=== PATIENT | female | born 1955 | race Caucasian/White ===

== ENCOUNTER 2020-08-01 10:09 | Outpatient (REF) | payer MEDICAID, SELFPAY | END 2020-08-01 10:10 | disposition home or self-care (01) | LOC: HO.LAB 10:09 | PROVIDERS: Visit Provider Internal Medicine | DX: Z20.828 Contact with and (suspected) exposure to other viral communicable diseases (principal) | CPT/HCPCS: U0003 ==

== ENCOUNTER 2021-07-02 07:59 | Outpatient (REF) | payer MEDICARE, MEDICAID, SELFPAY ==
--- NOTE | ~2021-07-02 | MM_ITS ---
EXAMINATION: MM SCREENING DIGITAL BREAST TOMOSYNTHESIS, BILATERAL CLINICAL INFORMATION: Screening. Asymptomatic. The lifetime risk of breast cancer based on the Tyrer-Cuzick Model is 3%. COMPARISON: Mammography: 07/05/2019, 11/19/2013 TECHNIQUE: Digital breast tomosynthesis is performed in both the craniocaudal and mediolateral oblique views along with computer-aided detection (CAD). Synthesized 2D images are generated from the tomosynthesis. FINDINGS: There are scattered areas of fibroglandular density (ACR BI-RADS breast composition Category b). There are no significant masses, abnormal calcifications, or other abnormalities. No significant changes from prior studies. The axilla and skin contours are unremarkable. MM/MM tomosynthesis screening BI IMPRESSION: No mammographic evidence of malignancy. ASSESSMENT: BI-RADS 1: Negative RECOMMENDATION: Routine annual mammography screening. This patient's information was entered into a reminder system with a target due date for their next mammogram.
== END 2021-07-02 08:00 | disposition home or self-care (01) ==
LOC: HO.MAMMO 07:59
PROVIDERS: PCP Internal Medicine; Visit Provider Internal Medicine
DX: Z12.31 Encounter for screening mammogram for malignant neoplasm of breast (principal)
CPT/HCPCS: 77063; 77067

== ENCOUNTER 2021-07-15 05:14 | Outpatient (REF) | payer MEDICARE, MEDICAID, SELFPAY ==
--- NOTE | ~2021-07-15 | XR_ITS ---
EXAMINATION: TIBIA FIBULA, RIGHT ANKLE. CLINICAL INFORMATION: Injury COMPARISON: None TECHNIQUE: Frontal lateral tibia-fibula, frontal lateral oblique right ankle. FINDINGS: There is nondisplaced vertical fracture through the posterior malleolus distal tibia extend into the articular surface. There is nondisplaced oblique proximal fibular diaphyseal fracture. Proximal tibia is intact. Bone alignments remain satisfactory. Ankle mortise and talar dome are intact. XR/XR tibia fibula RT 2V IMPRESSION: 1. Posterior malleolar distal tibia intra-articular nondisplaced fracture. 2. Nondisplaced proximal fibular diaphyseal fracture.
--- NOTE | ~2021-07-15 | XR_ITS ---
EXAMINATION: TIBIA FIBULA, RIGHT ANKLE. CLINICAL INFORMATION: Injury COMPARISON: None TECHNIQUE: Frontal lateral tibia-fibula, frontal lateral oblique right ankle. FINDINGS: There is nondisplaced vertical fracture through the posterior malleolus distal tibia extend into the articular surface. There is nondisplaced oblique proximal fibular diaphyseal fracture. Proximal tibia is intact. Bone alignments remain satisfactory. Ankle mortise and talar dome are intact. XR/XR ankle RT min 3V IMPRESSION: 1. Posterior malleolar distal tibia intra-articular nondisplaced fracture. 2. Nondisplaced proximal fibular diaphyseal fracture.
--- NOTE | ~2021-07-15 | XR_ITS ---
EXAMINATION: XR ANKLE, RIGHT CLINICAL INFORMATION: Pain COMPARISON: None TECHNIQUE: AP, lateral, and mortise views of the right ankle. FINDINGS: There is vertical fracture through the distal tibia, posterior malleolus extend into an articular surface. There is fiberglass cast in place. There are posterior and inferior calcaneal spurs. XR/XR ankle RT min 3V IMPRESSION: Nondisplaced intra-articular posterior malleolar fracture. Cast in place.
== END 2021-07-15 05:15 | disposition home or self-care (01) ==
LOC: HO.HOSX 05:14
PROVIDERS: Visit Provider Physician Assistant
DX: S82.851A Displaced trimalleolar fracture of right lower leg, initial encounter for closed fracture (principal)
CPT/HCPCS: 73590; 73610; 99202

== ENCOUNTER → 2021-07-19 14:27 | Outpatient (BNVA) | payer MEDICARE, MEDICAID, SELFPAY | PROVIDERS: Visit Provider Physician Assistant | DX: S82.839D Other fracture of upper and lower end of unspecified fibula, subsequent encounter for closed fracture with routine healing (principal); S82.891D Other fracture of right lower leg, subsequent encounter for closed fracture with routine healing | CPT/HCPCS: 99212 ==

== ENCOUNTER 2021-07-20 09:14 | Day surgery (SDC) | payer MEDICARE, MEDICAID, SELFPAY ==
[2021-07-20] VITALS (10 sets, daily range): BP systolic 86–116; BP diastolic 55–66; PULSE 59–72; RESP 16–18; TEMP 36.1–36.3; O2SAT 94–98; BMI 20.5
--- NOTE | ~2021-07-20 | FL_ITS ---
EXAMINATION: XR FLUOROSCOPY WITH IMAGES CLINICAL INFORMATION: Posterior malleoli fracture. COMPARISON: Radiographs right ankle 07/15/2021 TECHNIQUE: Fluoroscopy performed by Dr. Scottie Darden. Fluoroscopy time: under 1 minute. DAP: 0.0036 mGycm2 Images: 3 FINDINGS: Slight images again demonstrate the vertically oriented posterior malleoli fracture. No interval displacement or distraction. The ankle mortise appears symmetric. There is a bulky plantar calcaneal spur. FL/FL guidance in OR IMPRESSION: Fluoroscopy for orthopedic procedure.
[2021-07-20] MEDS: oxyCODONE HCl Immed Release 5 MG TABLET PO (10:36)
--- NOTE | 2021-07-20 11:40 | MHC.SHP ---
Pre-Procedural Eval Section A Date of Service: 07/20/21 The patient is an INPATIENT: No Changes since office visit: Yes Patient answered all questions; No Cold of Flu in the past 2 weeks, No New Medical Problems and No Changes in Medication The History & Physical has been completed within 30 days and I have reviewed it.: Yes Section B Chief Complaint: fx ankle Allergies: Allergies Allergy/AdvReac Type Severity Reaction Status Date / Time codeine Allergy Unknown unknown Verified 07/20/21 10:13 penicillin V Allergy Unknown rash Verified 07/20/21 10:13 Penicillins Allergy Unknown RASH Verified 07/20/21 10:13 Plan I have reviewed the history and physical and performed a pertinent physical examination on my patient. No changes have occurred unless specified.
--- NOTE | 2021-07-20 12:31 | P.CONAN_ITS ---
[facility] Active Problems Active Problems: All Active Problems (Updated 07/20/21 @ 10:16 by Lauren lynn) Closed right ankle fracture (Acute) Fracture of proximal end of fibula (Acute) Past Medical History Medical History Anxiety Depression Hypercholesteremia Family History Family history of problems with anesthesia: No Surgical History History of Problems with Anesthesia: No Social History Social History Patient Tobacco Use Status: Former Tobacco user Tobacco use type: Cigarette Years Smoked: 10 Smoked in Last 30 Days: No Use of substances other than those prescribed or required for medical reasons: No Are you DNR?: No Advance Directives: No Advance Directives Information Provided: Yes Meds Allergies Allergy/AdvReac Type Severity Reaction Status Date / Time codeine Allergy Unknown unknown Verified 07/20/21 10:13 penicillin V Allergy Unknown rash Verified 07/20/21 10:13 Penicillins Allergy Unknown RASH Verified 07/20/21 10:13 Home Medications Medication Instructions Recorded Confirmed Last Taken Type atorvastatin 10 mg tablet 1 tab PO DAILY 07/20/21 07/20/21 Unknown History diazepam 5 mg tablet 1 tab PO BID PRN 07/20/21 07/20/21 Unknown History fluoxetine 20 mg capsule 3 cap PO QAM 07/20/21 07/20/21 Unknown History oxycodone-acetaminophen 5 mg-325 1 tab PO TID PRN 07/20/21 07/20/21 Unknown History mg tablet pantoprazole 40 mg tablet,delayed 1 tab PO DAILY 07/20/21 07/20/21 Unknown History release Exam Exam Date and Time: July 20, 2021 1231 Height,Weight and Vital Signs: Height 5 ft 4 in Weight 120 lb Last Vital Signs Temp 97.4 F 07/20/21 10:39 Pulse 72 07/20/21 10:39 Resp 16 07/20/21 10:39 BP 105/66 07/20/21 10:39 Pulse Ox 96 07/20/21 10:39 Airway Mallampati Class: II TM Dist: >3cm Assessment and Plan Assessment Anesthesia Assessment: Anesthesia Plan Discussed and Chart Reviewed Final Anesthetic Review Family History of Problems with Anesthesia: No History of Problems with Anesthesia: No NPO: Yes ASA Class: II Final Preanesthetic Review: No Changes in Pt Med Stat, Meds/Allgs Chart R echo, Consent Obtained/Reviewed and Anes Risks/Benef Reviewed Patient Risk: Low Procedure Risk: Low Anesthetic Plan Anesthetic Plan: MAC: and Regional Block Disposition: Standard PACU
--- NOTE | 2021-07-20 12:41 | PM.OP ---
Brief Operative Note Date of Service: 07/20/21 Pre-op diagnosis: right ankle fracture Post-op diagnosis: same Procedure: exam under anesthesia Implants: none Surgeon: Scottie Darden MD Anesthesia: GETA, MAC and regional Was an Md Do Resident Urgent Care used for this Procedure?: Yes Md Do Resident Urgent Care: Bradly Kaba Estimated blood loss (mL): 0 IV fluids (mL): 250 Pathology: none sent Condition: stable Disposition: PACU
[2021-07-20] MEDS: Lactated Ringers 1,000 ML 50 ML IVCONT (12:57)
--- NOTE | 2021-07-20 13:06 | W.PM.OPN ---
Operative Note Operative Note Date of Service: 07/20/21 Narrative: Pre-op diagnosis: right ankle fracture Post-op diagnosis: same Procedure: exam under anesthesia Implants: none Surgeon: Scottie Darden MD Anesthesia: GETA, MAC and regional Was an Storage Specialist used for this Procedure?: Yes Storage Specialist: Bradly Kaba Estimated blood loss (mL): 0 IV fluids (mL): 250 Pathology: none sent Condition: stable Disposition: PACU Procedure in detail: Patient was brought to the operating room placed supine on the radiolucent table. Time-out was called to identify proper site, proper procedure and proper surgeon. I began by obtaining a mortise view and then an external rotation stress view of the right ankle. I compared these and the mortise was not pathologically widened on the stress view. I then obtained a lateral radiograph. The posterior malleolar fragment remained nondisplaced. At this point I made the decision to treat this with casting. A well-padded short-leg cast was applied while the ankle was dorsiflexed. Patient tolerated this procedure well and then was brought to the recovery room stable condition there were no known complications.
[2021-07-20] MEDS: ondansetron HCL 4 MG/2 ML VIAL IVPUSH (13:08)
[2021-07-20] MEDS: Ketorolac Tromethamine 15 MG/ML VIAL IVPUSH (13:08)
[2021-07-20] MEDS: HYDROmorphone HCl 0.5 MG/0.5 ML SYRINGE 0.25 MG IVPUSH (13:09)
[2021-07-20] MEDS: Acetaminophen 325 MG TABLET 975 MG PO (13:09)
== END 2021-07-20 14:25 | disposition home or self-care (01) ==
PROVIDERS: PCP Internal Medicine; Visit Provider Orthopaedic Surgery
PROC: (CPT 27786; principal; 2021-07-20 10:40)
DX: S82.891A Other fracture of right lower leg, initial encounter for closed fracture (principal); X58.XXXA Exposure to other specified factors, initial encounter; Y93.9 Activity, unspecified; Y92.9 Unspecified place or not applicable; Y99.8 Other external cause status
CPT/HCPCS: 27786; J1170; J1885; J2250; J2405; J3010

== ENCOUNTER 2021-08-02 09:05 | Outpatient (REF) | payer MEDICARE, MEDICAID, SELFPAY ==
--- NOTE | ~2021-08-02 | XR_ITS ---
EXAMINATION: XR PELVIS XR HIP, LEFT CLINICAL INFORMATION: Left hip pain. COMPARISON: Left hip radiographs dated 05/02/2018. TECHNIQUE: AP view of the pelvis. AP and frog-leg lateral views of the left hip. FINDINGS: No acute fracture or dislocation. No joint space narrowing or marginal osteophytes. No osseous erosion. No abnormal soft tissue calcification. XR/XR pelvis 1-2V IMPRESSION: Unremarkable examination.
--- NOTE | ~2021-08-02 | XR_ITS ---
EXAMINATION: XR ANKLE, RIGHT CLINICAL INFORMATION: Posterior malleolar fracture COMPARISON: Radiographs right lower leg and right ankle 07/15/2021. TECHNIQUE: AP, lateral, and mortise views of the right ankle. FINDINGS: There is an overlying fiberglass cast. Posterior malleoli fracture is in near-anatomic alignment, similar to prior exam. The ankle mortise is symmetric. There is plantar calcaneal spur. No acute bony abnormality. XR/XR ankle RT min 3V IMPRESSION: Posterior malleolar fracture in near-anatomic alignment. Overlying fiberglass cast.
--- NOTE | ~2021-08-02 | XR_ITS ---
EXAMINATION: XR PELVIS XR HIP, LEFT CLINICAL INFORMATION: Left hip pain. COMPARISON: Left hip radiographs dated 05/02/2018. TECHNIQUE: AP view of the pelvis. AP and frog-leg lateral views of the left hip. FINDINGS: No acute fracture or dislocation. No joint space narrowing or marginal osteophytes. No osseous erosion. No abnormal soft tissue calcification. XR/XR hip LT min 2V IMPRESSION: Unremarkable examination.
== END 2021-08-02 09:06 | disposition home or self-care (01) ==
LOC: HO.HOSX 09:05
PROVIDERS: Visit Provider Physician Assistant
DX: M25.571 Pain in right ankle and joints of right foot (principal); S82.891D Other fracture of right lower leg, subsequent encounter for closed fracture with routine healing
CPT/HCPCS: 72170; 73502; 73610; 99212

== ENCOUNTER 2021-08-23 07:56 | Outpatient (REF) | payer MEDICARE, MEDICAID, SELFPAY ==
--- NOTE | ~2021-08-23 | XR_ITS ---
EXAMINATION: XR ANKLE, RIGHT CLINICAL INFORMATION: M25.571 - Pain in right ankle and joints of right foot COMPARISON: Radiographs right ankle 08/02/2021. TECHNIQUE: AP, lateral, and mortise views of the right ankle. FINDINGS: There is a vertically oriented fracture posterior malleolus similar to prior exam. The fibroglandular catheter is been removed. Fracture fragments are unchanged in alignment. The ankle mortise is symmetric. There is no destructive process. No acute bony abnormality. Plantar calcaneal spur again seen. XR/XR ankle RT min 3V IMPRESSION: Posterior malleoli fracture is stable in alignment. No acute bony abnormality.
== END 2021-08-23 07:57 | disposition home or self-care (01) ==
LOC: HO.HOSX 07:56
PROVIDERS: Visit Provider Physician Assistant
DX: S82.891D Other fracture of right lower leg, subsequent encounter for closed fracture with routine healing (principal)
CPT/HCPCS: 73610; 99212

== ENCOUNTER 2021-08-25 13:54 | Outpatient (REF) | payer MEDICARE, MEDICAID, SELFPAY ==
--- NOTE | ~2021-08-25 | MM_ITS ---
EXAMINATION: BONE DENSITOMETRY CLINICAL INDICATION: Postmenopausal estrogen deficiency. COMPARISON: None (current study represents initial baseline exam). TECHNIQUE: Using a [employer] DXA System (software version: 13.1) manufactured by [employer], dual-energy x-ray absorptiometry was performed of the lumbar spine and left hip. The images are of good technical quality. Summary results are attached. FINDINGS: AP SPINE L1-L4: BMD 0.958 g/cm2, Z-score 0.1, T-score -1.9, osteopenia. LEFT FEMUR, NECK: BMD 0.770 g/cm2, Z-score -0.2, T-score -1.9, osteopenia. LEFT FEMUR, TOTAL: BMD 0.901 g/cm2, Z-score 0.6, T-score -0.8, normal. IDENTIFIED RISK FACTORS: Menopause, history of fracture (adult). HISTORY OF FRACTURE: Coccyx, ankle. MEDICATIONS: Vitamin D. MM/XR DEXA axial skeleton IMPRESSION: 1. DIAGNOSIS: Osteopenia based on the lowest T-score value of -1.9 in the femoral neck and lumbar spine applying World Health Organization criteria. 2. 10-YEAR FRACTURE RISK PREDICTION, FRAX: Major osteoporotic fracture (clinical spine, forearm, hip or shoulder) 15.6%. Hip fracture 2.4%. 3. Treatment Recommendations: NOF guidelines recommend consideration for treatment in postmenopausal women and men age 50 and older presenting with the following: -A hip or vertebral (clinical or morphometric) fracture. -T-score less than or equal to -2.5 at the femoral neck or spine after appropriate evaluation to exclude secondary causes. -Low bone mass at the hip or spine and a 10-year fracture probability by FRAX of greater than or equal to 3% for hip fracture or greater than or equal to 20% for major osteoporotic fracture based on the [place] adapted WHO algorithm. 4. Other Recommendations: All treatment decisions require clinical judgment and consideration of individual patient factors, including patient preferences, comorbidities, previous drug use, risk factors not captured in the FRAX model (e.g. frailty, falls, vitamin D deficiency, increased bone turnover, interval significant decline in bone density) and possible under or overestimation of fracture risk by FRAX. Additional medical evaluation for secondary cause of low bone mineral density may be appropriate. FUTURE SCAN RECOMMENDATION: People with diagnosed cases of osteoporosis or at high risk for fracture should have regular bone mineral density tests. For patients eligible for Medicare, routine testing is allowed once every 2 years. The testing frequency can be increased to one year for patients who have rapidly progressing disease, those who are receiving or discontinuing medical therapy to restore bone mass, or have additional risk factors.
== END 2021-08-25 13:55 | disposition home or self-care (01) ==
LOC: HO.MAMMO 13:54
PROVIDERS: Visit Provider Internal Medicine
DX: Z13.820 Encounter for screening for osteoporosis (principal); M85.80 Other specified disorders of bone density and structure, unspecified site; Z78.0 Asymptomatic menopausal state; Z87.81 Personal history of (healed) traumatic fracture; Z79.899 Other long term (current) drug therapy
CPT/HCPCS: 77080

== ENCOUNTER 2021-10-04 08:59 | Outpatient (REF) | payer MEDICARE, MEDICAID, SELFPAY ==
--- NOTE | ~2021-10-04 | XR_ITS ---
EXAMINATION: RIGHT FOOT AND ANKLE X-RAY CLINICAL INFORMATION: Pain COMPARISON: Previous right ankle x-ray TECHNIQUE: 3 views of the right foot and 3 views of the right ankle FINDINGS: Right foot: Bone alignment is normal. No acute fracture or dislocation is seen. There are small soft tissue calcifications or ossifications adjacent to the base of the fifth metatarsal bone. There may be mild soft tissue swelling seen in this region as well. This may be related to old soft tissue trauma. Joint spaces are normal. There is a plantar calcaneal spur. Right ankle: Bone alignment is normal. There is a nondisplaced posterior malleolar fracture. Compared to previous exam fracture line appears more indistinct suggestive of healing. No other fracture is seen. The ankle mortise is normal. Soft tissues are normal. XR/XR ankle RT min 3V IMPRESSION: Right foot: Soft tissue calcification or ossification adjacent to the base of the fifth metatarsal bone and question mild adjacent soft tissue swelling. No acute fracture seen. Calcaneal spur. Right ankle: Healing posterior malleolar fracture.
--- NOTE | ~2021-10-04 | XR_ITS ---
EXAMINATION: RIGHT FOOT AND ANKLE X-RAY CLINICAL INFORMATION: Pain COMPARISON: Previous right ankle x-ray TECHNIQUE: 3 views of the right foot and 3 views of the right ankle FINDINGS: Right foot: Bone alignment is normal. No acute fracture or dislocation is seen. There are small soft tissue calcifications or ossifications adjacent to the base of the fifth metatarsal bone. There may be mild soft tissue swelling seen in this region as well. This may be related to old soft tissue trauma. Joint spaces are normal. There is a plantar calcaneal spur. Right ankle: Bone alignment is normal. There is a nondisplaced posterior malleolar fracture. Compared to previous exam fracture line appears more indistinct suggestive of healing. No other fracture is seen. The ankle mortise is normal. Soft tissues are normal. XR/XR foot LT min 3V IMPRESSION: Right foot: Soft tissue calcification or ossification adjacent to the base of the fifth metatarsal bone and question mild adjacent soft tissue swelling. No acute fracture seen. Calcaneal spur. Right ankle: Healing posterior malleolar fracture.
== END 2021-10-04 09:00 | disposition home or self-care (01) ==
LOC: HO.HOSX 08:59
PROVIDERS: PCP Internal Medicine; Visit Provider Physician Assistant
DX: S82.891D Other fracture of right lower leg, subsequent encounter for closed fracture with routine healing (principal); D17.9 Benign lipomatous neoplasm, unspecified; F17.210 Nicotine dependence, cigarettes, uncomplicated
CPT/HCPCS: 73610; 73630; 99212

== ENCOUNTER 2021-11-12 09:00 | Outpatient (RCR) | payer MEDICARE, MEDICAID, SELFPAY ==
--- NOTE | 2021-09-20 15:27 | MHC.PT.EP ---
[facility] [place] Office [place] Office [place] Office [address] Yaneth Baldwin [address] [phone] F: [phone] F: [phone] F: [phone] F: [phone] Physical Therapy Plan of Care Date of Evaluation: Date of Surgery: 07/20/21 Diagnosis: FRACTURE R LOWER LEG Assessment: Pt IS 66 YO F REFERRED TO PT FROM [facility]THO ([facility]) S/P DISTAL TIB/PROX FIB FX ON R FROM A FALL (PLAYING BASKETBALL IN CRO) FROM JUL 13. Pt HAS BEEN CASTED/RECASTED UNTIL 08/23/21. Pt THEN ON VACATION. NOW PRESENTS TO PT WITH WALKING BOOT, LIMITED ANKLE ROM AND STRENGTH. GOOD PT CANDIDATE TO ADDRESS THESE ISSUES. Frequency and Duration: The patient will be seen 2X/WK X 8 WKS Short Term Goals: 1. INCREASED AWARENESS LE/ANKLE CARE 2. INCREASED R ANKLE ROM 5-10 DEGREES T/O Commodities Manager Goals: 1. DECREASED R ANKLE PAIN AT LEAST 50% WITH ADLS 2. INCREASED R ANKLE STRENGTH AT LEAST 1/2 MM GRADE T/O 3. DECREASED R ANKLE PAIN AT LEAST 50% WITH ADLS 4. IMPROVED GT PATTERN WITHOUT BOOT 5. IMPROVED LEFI Treatment Plan: Modalities to reduce pain, spasms and effusion. Manual therapy to restore motion and function. Therapeutic exercise to improve strength and flexibility. Neuromuscular re-education for posture and balance. Therapeutic activities to return to functional activities of daily living. Electronically signed by: TRENT HARE PT Please sign and return to therapist. Thank you for your referral.
--- NOTE | 2021-11-12 12:47 | MHC.PT.DC ---
[facility] [place] Office [place] Office [place] Office [address] Yaneth Baldwin 140 [facility] [phone] F: [phone] F: [phone] F: [phone] F: [phone] Physical Therapy Discharge Report Diagnosis: FRACTURE R LOWER LEG Date of Surgery: 07/13/21 Date of Evaluation: 09/20/21 Date of Discharge: 11/12/21 Treatments to Date: 8 Cancellations to Date: No Shows to Date: Discharge Status: Achieved Goals Improved Function Independent with HEP Discharge Summary: HAS MET PT GOALS Electronically signed by: TRENT HARE PT Please sign and return to therapist. Thank you for your referral.
== END 2021-11-12 12:55 | disposition home or self-care (01) ==
LOC: HO.PT 09:00
PROVIDERS: PCP Internal Medicine; Visit Provider Physician Assistant
DX: S82.891D Other fracture of right lower leg, subsequent encounter for closed fracture with routine healing (principal)
CPT/HCPCS: 97110; 97162; 97530; 97535

== ENCOUNTER 2022-07-20 08:06 | Outpatient (REF) | payer MEDICARE, MEDICAID, SELFPAY ==
[2022-07-20 09:17] LABS: Alanine Aminotransferase 16 U/L (0-31); Aspartate Amino Transferase 30 U/L (5-31)
== END 2022-07-20 08:07 | disposition home or self-care (01) ==
LOC: HO.LAB 08:06
PROVIDERS: PCP Internal Medicine; Visit Provider Internal Medicine
DX: R94.5 Abnormal results of liver function studies (principal)
CPT/HCPCS: 36415; 84450; 84460

== ENCOUNTER → 2023-07-18 09:00 | Outpatient (BNV) | payer OTHER, SELFPAY | PROVIDERS: PCP Internal Medicine; Visit Provider Radiology Diagnostic Radiology | DX: Z12.31 Encounter for screening mammogram for malignant neoplasm of breast (principal) | CPT/HCPCS: 77063; 77067 ==

== ENCOUNTER 2023-07-18 09:01 | Outpatient (REF) | payer OTHER, SELFPAY ==
--- NOTE | ~2023-07-18 | MM_ITS ---
EXAMINATION: MM SCREENING DIGITAL BREAST TOMOSYNTHESIS, BILATERAL CLINICAL INFORMATION: Screening. Asymptomatic. COMPARISON: Mammography: This study is compared with prior exams dating back to 2013. TECHNIQUE: Digital breast tomosynthesis is performed in both the craniocaudal and mediolateral oblique views along with computer-aided detection (CAD). Synthesized 2D images are generated from the tomosynthesis. FINDINGS: There are scattered areas of fibroglandular density (ACR BI-RADS breast composition Category b). There are no significant masses, abnormal calcifications, or other abnormalities. MM/MM tomosynthesis screening BI IMPRESSION: No mammographic evidence of malignancy. ASSESSMENT: BI-RADS BI-RADS 1 - Negative RECOMMENDATION: Routine annual mammography screening. 1 year F/U This examination should not preclude the clinical evaluation of a suspicious palpable abnormality. This patient's information was entered into a reminder system with a target due date for their next mammogram.
== END 2023-07-18 09:02 | disposition home or self-care (01) ==
LOC: HO.MAMMO 09:01
PROVIDERS: PCP Internal Medicine; Visit Provider Nurse Practitioner Adult Health
DX: Z12.31 Encounter for screening mammogram for malignant neoplasm of breast (principal)
CPT/HCPCS: 77063; 77067

== ENCOUNTER 2023-11-17 10:55 | Emergency (ER) | payer MEDICARE, MEDICAID, SELFPAY ==
--- NOTE | ~2023-11-17 | XR_ITS ---
EXAMINATION: XR CHEST CLINICAL INFORMATION: Chest pain COMPARISON: CTA of June 15, 2020 and chest x-ray of April 24, 2007 TECHNIQUE: 2 views of the chest were obtained. FINDINGS: There is no evidence of acute parenchymal disease, pneumothorax, or pleural effusion. Heart normal size. No evidence of pulmonary edema. There is mild scoliosis of the thoracic spine convex right. XR/XR chest 2V IMPRESSION: No acute disease.
--- NOTE | 2023-11-17 10:56 | ECG_ITS ---
Test Reason : CP Blood Pressure : / mmHG Vent. Rate : 064 BPM Atrial Rate : 064 BPM P-R Int : 136 ms QRS Dur : 086 ms QT Int : 424 ms P-R-T Axes : 056 081 066 degrees QTc Int : 437 ms Normal sinus rhythm Normal ECG When compared with ECG of 15-JUN-2020 07:40, No significant change was found Referred By: Generic ED Physician Electronically Signed By:Stepan Yap
[2023-11-17 11:10] VITALS: BP 144/84; PULSE 80; RESP 20; TEMP 36.6; O2SAT 100; BMI 19.5
--- NOTE | 2023-11-17 11:10 | ED.CHESTPAIN ---
HPI - Chest Pain General Chief Complaint: Chest Pain Stated Complaint: chest pain Time Seen by Provider: 11/17/23 14:06 Source: patient and family () Mode of arrival: ambulatory Limitations: no limitations History of Present Illness HPI narrative: 68 year old female with no significant pmhx presents to the ED today for evaluation of chest pain x3 days. Chest pain is located substernally and intermittently radiates into her right neck and to her back. Pain can be exacerbated with deep breathing. States I think it is stress as she reports increased stressors recently. She does not currently take anything for anxiety. Reports having episodes like these in the past. Denies cardiac history. Denies recent illness. Denies sweats, fever, chills, nausea or vomiting, shortness of breath, palpitations, calf pain/swelling. Denies recent travel or long car rides. Related Data Home Medications Medication Instructions Recorded Confirmed atorvastatin 10 mg tablet 1 tab PO DAILY 07/20/21 07/20/21 diazepam 5 mg tablet 1 tab PO BID PRN Anxiety 07/20/21 07/20/21 fluoxetine 20 mg capsule 3 cap PO QAM 07/20/21 07/20/21 oxycodone-acetaminophen 5 mg-325 1 tab PO TID PRN Pain 07/20/21 07/20/21 mg tablet pantoprazole 40 mg tablet,delayed 1 tab PO DAILY 07/20/21 07/20/21 release Previous Rx's Medication Instructions Recorded Kneeling Scooter #1 ea 08/02/21 indomethacin 25 mg capsule 25 mg PO ONCE PRN pain (scale 11/17/23 score 4-6) #10 caps Allergies Allergy/AdvReac Type Severity Reaction Status Date / Time codeine Allergy Unknown unknown Verified 10/04/21 09:17 penicillin V Allergy Unknown rash Verified 10/04/21 09:17 Penicillins Allergy Unknown RASH Verified 10/04/21 09:17 Review of Systems Review of Systems: Constitutional: No fever, chills, fatigue, night sweats, weight changes ENT/Mouth: No ear pain, hearing loss, nasal congestion, sinus pain, rhinorrhea, sore throat Eyes: No eye pain, swelling, redness, vision changes, discharge Cardio: +chest pain, No palpitations, GHOSH, orthopnea, peripheral edema Pulm: No SOB, cough, sputum, wheezing, dyspnea, hemoptysis GI: No nausea, vomiting, hematemesis, abdominal pain, diarrhea, constipation, hematochezia, melena : No irregular bleeding, dysuria, frequency, urgency, hesitancy, hematuria, flank pain, urinary flow changes, urinary incontinence or retention MSK: No back pain, neck pain, joint pain, myalgias Skin: No lesions, rashes Neuro: No weakness, numbness, paresthesias, LOC, dizziness, headache All other systems reviewed and are negative. [facility] Past Medical History Attestation statement: The following information was validated with the patient. Source: old records reviewed and nursing notes reviewed Medical History Anxiety Depression Hypercholesteremia Social History Social History Patient Tobacco Use Status: Former Tobacco user Tobacco use type: Cigarette Years Smoked: 10 Advance Directives: No Advance Directives Information Provided: Yes Current occupational status: retired Current occupation: rt handed Physical Exam Vital Signs: Vital Signs: Last Vital Signs Temp 98 F 11/17/23 11:10 Pulse 70 11/17/23 13:17 Resp 18 11/17/23 13:17 BP 128/86 11/17/23 13:17 Pulse Ox 95 11/17/23 13:17 O2 Del Method Room Air 11/17/23 13:17 BMI result Body Mass Index 19.5 Vital signs stable, afebrile. Const: Other: + tearful and tremulous General: cooperative, healthy appearing, no acute distress, alert and awake Nutritional Appearance: average body habitus Orientation/consciousness: patient oriented x3 Limitations: no limitations HEENT: Head: Yes normal to inspection, Yes atraumatic and Yes abrasion Eyes: General: appearance normal, both eyes and all related structures Conjunctivae: conjunctivae normal Sclerae: sclerae normal Pupils: Equal, round and reactive pupils present Neck: Neck: Yes normal visual inspection, Yes no lymphadenopathy, Yes no meningeal signs and Yes no JVD Chest: Chest palpation & inspection: normal inspection of the chest, normal palpation of entire chest wall, no crepitus and no tenderness Resp: Effort & Inspection: normal respiratory effort, able to speak in complete sentences, no respiratory distress and symmetric chest movement Auscultation: clear to auscultation bilaterally Cardio: Other: + 2+ radial pulses Jugular venous distension: no JVD Rate: regular rate Rhythm: regular rhythm GI: Inspection: Yes normal to inspection and No visible pulsation Palpation (GI): Soft to palpation, nontender, no guarding and no pulsatile masses Back/Spine/Pelvis: Other: No midline spinous tenderness or step-off deformity. No paraspinal muscle tenderness. Skin: General skin exam: no rashes or lesions noted Neuro: General: patient oriented x3, gait normal, moves all extremities and no meningeal signs Cranial nerves: Yes Equal, round and reactive pupils present Gait exam (Neuro): Normal gait present Motor exam (neuro): 5/5 motor strength present throughout Pupils: Normal pupillary reactivity/response: bilateral Extrem: General: Yes normal to inspection, Yes capillary refill normal and Yes no clubbing, cyanosis or edema Course Course Course Narrative: RME:?68 yo female here for evaluation of intermittent substernal chest pain, radiating up into right jaw and back x3 days. Reports increased stressors, stating i think it's stress . Denies cardiac history. Denies recent illness. Denies fever, chills, N/V, SOB. vitals wnl in triage. tremulous. holding chest. tearful. Lungs cta b/l. RRR. labs, CXR and ekg ordered. Full HPI, ROS and PE to be performed by the primary ED provider. Reevaluation(s) Reevaluation #1: 1400-- CBC without leukocytosis or anemia. No left shift. No acute electrolyte abnormalities requiring intervention. Troponin undetectable x2 > no ACS. EKG showing NSR with a rate of 64 bpm, qt 424, no acute ischemic changes or st elevations > no arrythmia. cxr unremarkable. > work up unremakrable. no clear etiology for patient's symptoms. upon discussing work up results with patient, she endorses a sigh of relief and states she is already feeling better. suspicion for anxiety vs pleuritis vs chostochondritis. will send rx for indomethacin. Patient has remained stable throughout ED visit today. Discussed worrisome signs and symptoms and when to return to the ED. All questions answered at this time. Patient is agreeable with disposition and stable for discharge. Medications Administered Discontinued Medications Generic Name Dose Route Start Last Admin Trade Name Freq PRN Reason Stop Dose Admin Acetaminophen 650 mg 11/17/23 13:17 11/17/23 13:24 Acetaminophen 325 Mg Tablet PO 11/17/23 13:18 650 mg ONCE ONE Administration Ibuprofen 600 mg 11/17/23 13:20 11/17/23 13:24 Ibuprofen 600 Mg Tablet PO 11/17/23 13:21 600 mg ONCE ONE Administration Medical Decision Making Medical Decision Making [facility] Narrative: 68 year old female with no significant pmhx presents to the ED today for evaluation of chest pain x3 days. Vital signs initially notable for hypertension, now wnl. Patient is nontoxic appearing and in NAD. Anxious, tearful, and tremulous. RRR. Lungs CTA b/l. No jvd or peripheral edema. No calf tenderness. Clinical concern for arrhythmia, ACS, GERD, anxiety, pleuritis, costochondritis, electrolyte abnormality, anemia. Unlikely PE, pneumothorax, rib fracture, trauma, contusion. Plan for labs, EKG, cxr, and re-evaluation. Differential Diagnosis Differential Diagnoses: The differential diagnosis associated with the presentation includes as above. Admission/Observation Consideration of admission/observation: Escalation of care including admission/observation considered Lab Data [facility] Lab Attestation statement: I reviewed the patient's lab results. as above. 11/17/23 11:11 11/17/23 11:11 Labs: Lab Results 11/17/23 11/17/23 Range/Units 11:11 13:29 WBC 6.9 (4.8-10.8) X10*3/uL RBC 4.41 (4.20-5.50) X10*6/uL Hgb 12.2 (12.0-16.0) g/dl Hct 37.5 (37.0-47.0) % MCV 85.0 (80.0-98.0) fL MCH 27.7 (27.0-33.0) pg MCHC 32.5 (31.0-35.0) g/dl RDW 13.3 (11.0-16.0) % Plt Count 375 (160-400) X10*3/uL MPV 9.9 (9.4-12.3) fL Immature Gran % (Auto) 0.1 (0.0-0.4) % Neut % (Auto) 59.9 (45-73) % Lymph % (Auto) 30.0 (20-40) % [place] % (Auto) 7.4 (2-11) % Eos % (Auto) 1.6 (0-4) % Baso % (Auto) 1.0 (0-2) % Lymph # (Auto) 2.1 (1.2-4.9) X10*3/uL [place] # (Auto) 0.5 (0.1-1.2) X10*3/uL Eos # (Auto) 0.1 (0.0-0.4) X10*3/uL Baso # (Auto) 0.1 (0.0-0.2) X10*3/uL Abs Immat Gran (auto) 0.01 (0.00-0.03) X10*3/uL Absolute Neuts (auto) 4.2 (2.0-8.3) x10*3/uL Absolute Nucleated RBC 0.000 (0.0-0.012) X10*3/uL Nucleated RBC % (auto) 0.0 (0.0-0.2) /100WBC Sodium 139 (135-145) mmol/L Potassium 4.1 (3.3-5.1) mmol/L Chloride 105 (96-108) mmol/L Carbon Dioxide 26 (22-29) mmol/L Anion Gap 12 (12-20) BUN 13 (9-16) mg/dL Creatinine 0.70 (0.5-1.4) mg/dL Estim Creat Clear Calc 61.4 Estimated GFR > 60 Random Glucose 90 (60-115) mg/dL Calcium 9.7 (8.4-10.2) mg/dL Troponin I High Sens < 2.7 < 2.7 (<3.5-17.0) ng/L Independent Interpretation I performed an independent interpretation of an: EKG and Plain X-Ray Interpretation: EKG showing NSR with a rate of 64 bpm, qt 424, no acute ischemic changes or st elevations I have personally interpreted CXR and agree with radiologist's interpretation. Radiology Impression Discussion of test interpretation with radiology: I have reviewed the radiologist's reading. Radiologist Impression: XR chest 2V IMPRESSION: No acute disease. Independent Historian Clinical information obtained from an independent historian. History obtained from or confirmed by: Spouse () External Record Review External record reviewed: Inpatient record Prescription Management I considered prescription management with: Pain Medication Chronic Conditions Patient?s care impacted by: Other (anxiety, HDL, gerd) Social Determinants Patient?s care significantly limited by Social Determinants of Health including: Other Social Determinant of Health Critical Care Time Critical Care Time Critical Care Time: No Discharge Plan Discharge Clinical Impression: Chest pain, Anxiety Patient Disposition: Home, Self-Care Instructions: Chest Pain (ED), Anxiety (ED), Chest Wall Pain (ED) Additional Instructions: Your labs today are reassuring. Your cardiac enzyme was undetectable x2. Your EKG was normal. Your chest x-ray was normal and does not demonstrate any pneumonia. Indomethacin is an NSAID that has been sent to your pharmacy. Take this as needed for pain. Do not take this with other NSAIDs such as ibuprofen as it can cause increased risk of GI bleeding. Please follow-up with your primary care provider this week. If symptoms persist or worsen please return to the ED. In the case of an emergency call 911. Prescriptions: New indomethacin 25 mg capsule 25 mg PO ONCE PRN (Reason: pain (scale score 4-6)) Qty: 10 0RF Rx Instructions: administer with food or milk No Action atorvastatin 10 mg tablet 1 tab PO DAILY oxycodone-acetaminophen 5-325 mg tablet 1 tab PO TID PRN (Reason: Pain) pantoprazole 40 mg tablet,delayed release (DR/EC) 1 tab PO DAILY fluoxetine 20 mg capsule 3 cap PO QAM diazepam 5 mg tablet 1 tab PO BID PRN (Reason: Anxiety) (DME) Kneeling Scooter See Rx Instructions .ROUTE .MEDSUPPLY Qty: 1 0RF Rx Instructions: As directed Referrals: [facility] [place] Primary CareDavid [Provider Group] [facility] [place] Primary CareJess [Provider Group] Interventions: ED Discharge Assessment Last Done: 11/17/23 14:42 Discharge Date/Time: 11/17/23 14:08
[2023-11-17 11:15] LABS: MANUAL DIFF FLAG NO
[2023-11-17 11:34] LABS: Anion Gap 12 (12-20); Blood Urea Nitrogen 13 mg/dL (9-16); Calcium 9.7 mg/dL (8.4-10.2); Carbon Dioxide 26 mmol/L (22-29); Chloride 105 mmol/L (96-108); Creatinine Clr Calc Pharmacy 61.4; Estimated Glomerular Filt Rate > 60; Glucose Random 90 mg/dL (60-115); Potassium 4.1 mmol/L (3.3-5.1); Sodium 139 mmol/L (135-145)
[2023-11-17 11:41] LABS: Troponin-I High Sensitivity < 2.7 ng/L (<3.5-17.0)
[2023-11-17 11:58] LABS: Basophils Absolute Auto 0.1 X10*3/uL (0.0-0.2); Eosinophils Absolute Auto 0.1 X10*3/uL (0.0-0.4); Eosinophils Percent Auto 1.6 % (0-4); Hematocrit 37.5 % (37.0-47.0); Hemoglobin 12.2 g/dl (12.0-16.0); Imm Gran Abs Auto 0.01 X10*3/uL (0.00-0.03); Imm Gran Pct Auto 0.1 % (0.0-0.4); Lymphocytes Absolute Auto 2.1 X10*3/uL (1.2-4.9); Mean Corpuscular HGB Conc 32.5 g/dl (31.0-35.0); Mean Corpuscular Hemoglobin 27.7 pg (27.0-33.0); Mean Platelet Volume 9.9 fL (9.4-12.3); Monocytes Absolute Auto 0.5 X10*3/uL (0.1-1.2); Monocytes Percent Auto 7.4 % (2-11); Neutrophils Absolute Auto 4.2 x10*3/uL (2.0-8.3); Neutrophils Percent Auto 59.9 % (45-73); Platelet Count 375 X10*3/uL (160-400); Red Blood Count 4.41 X10*6/uL (4.20-5.50); Red Cell Distribution Width 13.3 % (11.0-16.0); White Blood Count 6.9 X10*3/uL (4.8-10.8)
[2023-11-17 13:17] VITALS: BP 128/86; PULSE 70; RESP 18; O2SAT 95
[2023-11-17] MEDS: Ibuprofen 600 MG TABLET PO (13:24)
[2023-11-17] MEDS: Acetaminophen 325 MG TABLET 650 MG PO (13:24)
[2023-11-17 13:54] LABS: Troponin-I High Sensitivity < 2.7 ng/L (<3.5-17.0)
== END 2023-11-17 14:08 | disposition home or self-care (01) ==
PROVIDERS: Emergency Provider Emergency Medicine
DX: R07.89 Other chest pain (principal); M54.2 Cervicalgia; M54.50 Low back pain, unspecified; F41.1 Generalized anxiety disorder; F43.0 Acute stress reaction; Z79.899 Other long term (current) drug therapy
CPT/HCPCS: 36415; 71046; 80048; 84484; 85025; 93005; 99283

== ENCOUNTER → 2023-11-17 10:56 | Outpatient (BNV) | payer MEDICARE, MEDICAID, SELFPAY | PROVIDERS: Emergency Provider Emergency Medicine; Visit Provider Internal Medicine Cardiovascular Disease | DX: R07.9 Chest pain, unspecified (principal) | CPT/HCPCS: 93010 ==

== ENCOUNTER 2024-03-08 11:42 | Outpatient (REF) | payer OTHER, SELFPAY ==
--- NOTE | ~2024-03-08 | XR_ITS ---
EXAMINATION: Chest and right rib x-ray CLINICAL INFORMATION: Substernal chest wall and right anterior third and fourth rib pain COMPARISON: Previous chest x-ray most recent November 2023 TECHNIQUE: PA and lateral chest. 4 views of the right ribs. FINDINGS: The cardiac and mediastinal contours are stable. Well-inflated lungs. The lungs are clear. No pleural effusion or pneumothorax. Mild degenerative changes of the thoracic spine. No rib fracture. XR/XR ribs RT min 3V w CXR1V IMPRESSION: No rib fracture. No evidence for acute disease in the chest.
--- NOTE | ~2024-03-08 | XR_ITS ---
EXAMINATION: Chest and right rib x-ray CLINICAL INFORMATION: Substernal chest wall and right anterior third and fourth rib pain COMPARISON: Previous chest x-ray most recent November 2023 TECHNIQUE: PA and lateral chest. 4 views of the right ribs. FINDINGS: The cardiac and mediastinal contours are stable. Well-inflated lungs. The lungs are clear. No pleural effusion or pneumothorax. Mild degenerative changes of the thoracic spine. No rib fracture. XR/XR chest 2V IMPRESSION: No rib fracture. No evidence for acute disease in the chest.
== END 2024-03-08 11:43 | disposition home or self-care (01) ==
LOC: HO.XRAY 11:42
PROVIDERS: PCP Internal Medicine; Visit Provider Internal Medicine
DX: R07.81 Pleurodynia (principal); R07.89 Other chest pain
CPT/HCPCS: 71046; 71101

== ENCOUNTER 2024-05-22 14:03 | Outpatient (REF) | payer OTHER, SELFPAY ==
--- NOTE | ~2024-05-22 | XR_ITS ---
EXAMINATION: XR HIP, RIGHT CLINICAL INFORMATION: Right hip pain. COMPARISON: 08/02/2021 TECHNIQUE: AP and frog-leg lateral views of the right hip. FINDINGS: Right hip joint appears relatively well preserved. No fracture or malalignment. Degenerative disc disease is partially imaged and L5-S1. Soft tissues are unremarkable. XR/XR hip RT min 2V IMPRESSION: 1. No acute osseous findings at the right hip. 2. Degenerative disc disease at L5-S1. Electronically signed by: Jose Ramirez MD 06/15/2024 11:39 AM EDT
== END 2024-05-22 14:04 | disposition home or self-care (01) ==
LOC: HO.XRAY 14:03
PROVIDERS: PCP Internal Medicine; Visit Provider Nurse Practitioner Adult Health
DX: M25.551 Pain in right hip (principal)
CPT/HCPCS: 73502

== ENCOUNTER 2024-06-26 08:20 | Outpatient (REF) | payer OTHER, SELFPAY ==
[2024-06-26 08:43] LABS: MANUAL DIFF FLAG NO
[2024-06-26 09:31] LABS: Basophils Absolute Auto 0.1 X10*3/uL (0.0-0.2); Eosinophils Absolute Auto 0.1 X10*3/uL (0.0-0.4); Eosinophils Percent Auto 1.5 % (0-4); Hematocrit 34.9 % (37.0-47.0); Hemoglobin 11.5 g/dl (12.0-16.0); Imm Gran Abs Auto 0.03 X10*3/uL (0.00-0.03); Imm Gran Pct Auto 0.4 % (0.0-0.4); Lymphocytes Absolute Auto 1.8 X10*3/uL (1.2-4.9); Lymphocytes Percent Auto 22.8 % (20-40); Mean Corpuscular Hemoglobin 28.1 pg (27.0-33.0); Mean Corpuscular Volume 85.3 fL (80.0-98.0); Monocytes Absolute Auto 0.7 X10*3/uL (0.1-1.2); Monocytes Percent Auto 8.5 % (2-11); Neutrophils Absolute Auto 5.3 x10*3/uL (2.0-8.3); Neutrophils Percent Auto 65.8 % (45-73); Platelet Count 394 X10*3/uL (160-400); Red Blood Count 4.09 X10*6/uL (4.20-5.50); Red Cell Distribution Width 13.6 % (11.0-16.0); White Blood Count 8.1 X10*3/uL (4.8-10.8)
[2024-06-26 09:40] LABS: Estimated Average Glucose 103 mg/dL; Hemoglobin A1c % 5.2 % (<6.0)
[2024-06-26 10:00] LABS: Alanine Aminotransferase 16 U/L (0-31); Albumin Level 4.4 g/dL (3.5-5.0); Alkaline Phosphatase 59 U/L (39-117); Anion Gap 12 (12-20); Aspartate Amino Transferase 26 U/L (5-31); Bilirubin Total 0.4 mg/dL (0.0-1.0); Blood Urea Nitrogen 12 mg/dL (9-16); Calcium 10.2 mg/dL (8.4-10.2); Carbon Dioxide 28 mmol/L (22-29); Chloride 105 mmol/L (96-108); Cholesterol 298 mg/dL (<200); Estimated Glomerular Filt Rate > 60; Glucose Random 98 mg/dL (60-115); HDL Cholesterol 105 mg/dL (>40); LDL Cholesterol Calculated 180 mg/dL (<100); Potassium 3.8 mmol/L (3.3-5.1); Sodium 141 mmol/L (135-145); Total Protein 7.3 g/dL (6.5-8.0); Triglycerides 65 mg/dL (<150)
[2024-06-26 10:15] LABS: TSH reflex Free T4 0.73 uIU/mL (0.32-4.0)
== END 2024-06-26 08:21 | disposition home or self-care (01) ==
LOC: HO.LAB 08:20
PROVIDERS: PCP Internal Medicine; Visit Provider Internal Medicine
DX: E78.00 Pure hypercholesterolemia, unspecified (principal); M85.88 Other specified disorders of bone density and structure, other site; M25.551 Pain in right hip; M54.42 Lumbago with sciatica, left side; M54.41 Lumbago with sciatica, right side; G89.29 Other chronic pain; R35.1 Nocturia; R73.01 Impaired fasting glucose
CPT/HCPCS: 36415; 80053; 80061; 83036; 84443; 85025

== ENCOUNTER 2024-07-11 09:00 | Outpatient (RCR) | payer OTHER, SELFPAY | END 2024-07-11 10:31 | disposition home or self-care (01) | LOC: HO.PT 09:00 | PROVIDERS: PCP Internal Medicine; Visit Provider Nurse Practitioner Adult Health | DX: M25.551 Pain in right hip (principal) | CPT/HCPCS: 97110; 97161; 97530 ==

== ENCOUNTER 2024-07-31 13:11 | Outpatient (REF) | payer OTHER, SELFPAY ==
--- NOTE | ~2024-07-31 | MM_ITS ---
EXAMINATION: MM SCREENING DIGITAL BREAST TOMOSYNTHESIS, BILATERAL CLINICAL INFORMATION: Screening. Asymptomatic. COMPARISON: Mammography: Comparison is made with available priors TECHNIQUE: Digital breast mammography with tomosynthesis is performed in both the craniocaudal and mediolateral oblique views along with computer-aided detection (CAD). FINDINGS: There are scattered areas of fibroglandular density (ACR BI-RADS breast composition Category b). There are no significant masses, abnormal calcifications, or other abnormalities. MM/MM tomosynthesis screening BI IMPRESSION: No mammographic evidence of malignancy. ASSESSMENT: BI-RADS BI-RADS 1 - Negative RECOMMENDATION: Routine annual mammography screening. 1 year F/U This examination should not preclude the clinical evaluation of a suspicious palpable abnormality. This patient's information was entered into a reminder system with a target due date for their next mammogram. Electronically signed by: Rachel Knowles DO 08/09/2024 09:35 AM [facility]
--- NOTE | ~2024-07-31 | MM_ITS ---
EXAMINATION: BONE DENSITOMETRY CLINICAL INDICATION: Other specified disorders of bone density. COMPARISON: Baseline BD dated 08/25/2021. TECHNIQUE: Using a [employer] DXA System (software version: 13.1) manufactured by [employer], dual-energy x-ray absorptiometry was performed of the lumbar spine and left hip. The images are of good technical quality. Summary results are attached. FINDINGS: LEFT FEMUR, NECK: Current: BMD 0.809 g/cm2, Z-score 0.3, T-score -1.6, osteopenia. Baseline: BMD 0.770 g/cm2. LEFT FEMUR, TOTAL: Current: BMD 0.873 g/cm2, Z-score 0.7, T-score -1.1, osteopenia, 3.1% decrease from baseline (<5% change is not significant). Baseline: BMD 0.901 g/cm2. AP SPINE L3-L4 (excluding L1 and L2): The data of L1-L4 has been changed to exclude the L1 and L2 vertebral bodies, because degenerative changes at these levels may cause overestimation of lumbar spine density. Current: BMD 1.018 g/cm2, Z-score 0.6, T-score -1.5, osteopenia, 1.9% increase from baseline (<5% change is not significant). Baseline: BMD 0.999 g/cm2. IDENTIFIED RISK FACTORS: Menopause, history of fracture (adult). HISTORY OF FRACTURE: Other. MEDICATIONS: Calcium supplements or multivitamin, vitamin D. MM/XR DEXA axial skeleton IMPRESSION: 1. DIAGNOSIS: Osteopenia based on the lowest T-score value of -1.6 in the femoral neck applying World Health Organization criteria. 2. 10-YEAR FRACTURE RISK PREDICTION, FRAX: Major osteoporotic fracture (clinical spine, forearm, hip or shoulder) 13.9%. Hip fracture 2.1%. 3. Treatment Recommendations: NOF guidelines recommend consideration for treatment in postmenopausal women and men age 50 and older presenting with the following: -A hip or vertebral (clinical or morphometric) fracture. -T-score less than or equal to -2.5 at the femoral neck or spine after appropriate evaluation to exclude secondary causes. -Low bone mass at the hip or spine and a 10-year fracture probability by FRAX of greater than or equal to 3% for hip fracture or greater than or equal to 20% for major osteoporotic fracture based on the [place] adapted WHO algorithm. 4. Other Recommendations: All treatment decisions require clinical judgment and consideration of individual patient factors, including patient preferences, comorbidities, previous drug use, risk factors not captured in the FRAX model (e.g. frailty, falls, vitamin D deficiency, increased bone turnover, interval significant decline in bone density) and possible under or overestimation of fracture risk by FRAX. Additional medical evaluation for secondary cause of low bone mineral density may be appropriate. FUTURE SCAN RECOMMENDATION: People with diagnosed cases of osteoporosis or at high risk for fracture should have regular bone mineral density tests. For patients eligible for Medicare, routine testing is allowed once every 2 years. The testing frequency can be increased to one year for patients who have rapidly progressing disease, those who are receiving or discontinuing medical therapy to restore bone mass, or have additional risk factors. Electronically signed by: Steven Nur MD 08/01/2024 04:54 PM EDT RP
== END 2024-07-31 13:12 | disposition home or self-care (01) ==
LOC: HO.MAMMO 13:11
PROVIDERS: PCP Internal Medicine; Visit Provider Internal Medicine
DX: Z12.31 Encounter for screening mammogram for malignant neoplasm of breast (principal); Z13.820 Encounter for screening for osteoporosis; M85.88 Other specified disorders of bone density and structure, other site; Z78.0 Asymptomatic menopausal state
CPT/HCPCS: 77063; 77067; 77080

== ENCOUNTER → 2024-07-31 13:15 | Outpatient (BNV) | payer OTHER, SELFPAY | PROVIDERS: PCP Internal Medicine; Visit Provider Internal Medicine | DX: Z12.31 Encounter for screening mammogram for malignant neoplasm of breast (principal) | CPT/HCPCS: 77063; 77067 ==

== ENCOUNTER 2025-02-04 04:54 | Emergency (ER) | payer OTHER, SELFPAY ==
--- NOTE | ~2025-02-04 | CT_ITS ---
CLINICAL HISTORY: fall + head strike CT cervical spine without contrast Comparison: None Findings: There is significant multilevel cervical spondylosis multilevel disc space narrowing, disc osteophyte complexes. There is multilevel multifactorial central canal and foraminal stenoses. Multilevel facet spondylosis and uncinate hypertrophy. There is 3 mm anterior listhesis C4 on C5. There are no acute cervical spine fractures. Multilevel Schmorl's nodes. There is deformity with loss of height inferior endplate of T1 with focal loss of height superior endplate of T2 most likely Schmorl's nodes and/or old fractures. Acute fractures can not be excluded. There is asymmetry with loss of fat planes in the region of the left parotid gland compared to the right with the increased soft tissue density in the region of the left parotid gland and left cervical soft tissues. IMPRESSION: Multilevel cervical spondylosis no acute cervical spine fractures 3 mm anterior listhesis C4 on C5 likely degenerative can not exclude ligamentous injury Multilevel Schmorl's nodes cervical spine, deformity inferior endplate T1 and superior endplate T2 likely degenerative and/or Schmorl's nodes can not exclude mild and/or acute endplate fractures correlate with clinical history and physical exam comparison to prior imaging is recommended. If there is clinical concern for acute fracture then MRI cervical spine could be performed Loss of fat planes in the region of the left parotid gland compared to the right with the increased soft tissue density within the region of the left parotid gland and left cervical soft tissues this may represent normal variant with normal asymmetry. However left neck, parotid gland mass can not be excluded. Findings unlikely would be secondary to trauma. Compared to prior imaging is recommended, if none are available or if this is a new finding CT or MRI neck soft tissue neck with and contrastwould be recommended to exclude underlying parotid gland pathology or soft tissue mass This document has been electronically signed by: Kody Castillo MD on 02/04/2025 07:18:34
--- NOTE | ~2025-02-04 | CT_ITS ---
CLINICAL HISTORY: fall + head strike CT head without contrast Comparison: None Findings: No intra-axial mass, midline shift, hydrocephalus, or acute hemorrhage. There are mild central and cortical involutional changes. Mild old small-vessel white matter ischemic changes There are right anterior frontal and right periorbital soft tissue hematomas. The visualized paranasal sinuses and mastoid air cells are normal. There is mild deviation of the bony nasal septum to the right. There is edema of the turbinates. There is mild mucosal thickening of the paranasal sinuses. Mild degenerative changes of the temporomandibular joints. The orbits are within normal limits. There is a lucency within the right nasal bone. The anterior aspect of thenasal bones are not included on the field of view. No skull fracture. IMPRESSION: Right anterior frontal convexity and right periorbital soft tissue hematomas Mild central and cortical involutional changes, mild old small-vessel white matter ischemic changes Right nasociliary groove versus nondisplaced right nasal bone fracture correlate with physical exam; the nasal bones are incompletely included on the [id number] of this exam. Infectious/inflammatory changes within the paranasal sinuses This document has been electronically signed by: Kody Castillo MD on 02/04/2025 07:07:22
--- NOTE | ~2025-02-04 | MR_ITS ---
EXAMINATION: MRI WITH/FACE/NECK WITHOUT AND WITH CONTRAST CLINICAL INFORMATION: Neck pain. Status post fall question ligament injury or parotid mass COMPARISON: None available. TECHNIQUE: MRI of the orbit/face/neck was obtained using routine sequences without and with contrast. Intravenous contrast: Gadavist 4.5 mL. FINDINGS: No cervical adenopathy is identified. The left parotid gland is normal size and signal. No abnormal enhancement seen. The right parotid gland is partially removed or atrophied. The submandibular glands are normal. No contour abnormality or pathologic enhancement is seen within the oral cavity or pharyngeal mucosal space. The tongue base and nasopharyngeal soft tissues are normal. The laryngeal structures are normal. The parapharyngeal fat is preserved. The skull base is normal in appearance. No extramucosal soft tissue mass or fluid collection is seen. No retropharyngeal fluid collection is evident. The thyroid gland is normal. The superior mediastinum is unremarkable. The lung apices are clear. The mastoid air cells and visualized portions of the paranasal sinuses are well-aerated. No marrow signal abnormalities are noted. The imaged portions of the brain parenchyma are unremarkable. MR/MR orbits face neck wo/w con IMPRESSION: Partially removed on atrophied right parotid gland. The left parotid and submandibular glands are normal. No abnormal neck lymphadenopathy. No abnormal bone marrow signal either. The cervical cord signal and caliber is normal. Electronically signed by: Bruno Go MD 02/04/2025 02:12 PM EDT
[2025-02-04 04:59] VITALS: BP 149/103; PULSE 72; RESP 18; TEMP 36.5; O2SAT 99; BMI 19.4
--- NOTE | 2025-02-04 07:18 | ED_ITS ---
HPI - Fall General Chief Complaint: Fall Stated Complaint: fall w/head strike Time Seen by Provider: 02/04/25 07:04 History of Present Illness HPI Narrative: Patient is a 69-year-old female presented today after falling at 02:00 patient down 6 mm steps. Complaining injury to the of the base. There is no loss of consciousness. No vomiting. Patient is from home. Patient not on blood thinners. Related Data Home Medications ?Medication ?Instructions ?Recorded ?Confirmed atorvastatin 10 mg tablet 1 tab PO DAILY 07/20/21 07/20/21 diazepam 5 mg tablet 1 tab PO BID PRN Anxiety 07/20/21 07/20/21 fluoxetine 20 mg capsule 3 cap PO QAM 07/20/21 07/20/21 oxycodone-acetaminophen 5 mg-325 1 tab PO TID PRN Pain 07/20/21 07/20/21 mg tablet pantoprazole 40 mg tablet,delayed 1 tab PO DAILY 07/20/21 07/20/21 release Previous Rx's ?Medication ?Instructions ?Recorded Kneeling Scooter #1 ea 08/02/21 indomethacin 25 mg capsule 25 mg PO ONCE PRN pain (scale 11/17/23 score 4-6) #10 caps Allergies Allergy/AdvReac Type Severity Reaction Status Date / Time codeine Allergy Unknown unknown Verified 02/04/25 05:05 penicillin V Allergy Unknown rash Verified 02/04/25 05:05 Penicillins Allergy Unknown RASH Verified 02/04/25 05:05 Review of Systems 2 Review of Systems: Positive head injury Yes all other systems are reviewed and are negative [facility] Past Medical History Attestation statement: The following information was validated with the patient. Medical History Anxiety Depression Hypercholesteremia Social History Social History Alcohol intake: current Alcohol intake frequency: holidays/special occasions only Patient Tobacco Use Status: Former Tobacco user Tobacco use type: Cigarette Years Smoked: 10 Smoked in Last 30 Days: No Use of substances other than those prescribed or required for medical reasons: No Advance Directives: No Advance Directives Information Provided: Yes Current occupational status: retired Current occupation: rt handed Physical Exam 2 Vital Signs: Vital Signs: Last Vital Signs Temp 97.7 F 02/04/25 04:59 Pulse 72 02/04/25 11:25 Resp 16 02/04/25 11:25 BP 136/77 02/04/25 11:25 Pulse Ox 97 02/04/25 11:25 O2 Del Method Room Air 02/04/25 11:25 BMI result Body Mass Index 19.4 Appearance: Alert. Oriented X3. No acute distress. Eyes: Pupils equal, round and reactive to light. Significant swelling over the right periorbital area. Extraocular muscle intact ENT: Pharynx normal. Neck: Normal inspection. Neck supple. No lymph nodes noted. No crepitus CVS: Normal heart rate and rhythm. Pulses normal. Normal S1 and S2 Respiratory: No respiratory distress. Breath sounds normal. No Wheezing. No rales Abdomen: Soft and nontender. No rigidity. No distention. good BS x4 Skin: Skin warm and dry. Normal skin color. Normal skin turgor. Extremities: No lower extremity edema. Neurovascular intact to all extremities. No Lacerations. Positive abrasion to the right knee there is good distal pulses there is good range of motion at the knee. There is no tenderness over the patella there is no tenderness on palpation of the medial or lateral collateral ligament. Good range of movement at the hip. Good range of motion at the ankle. No pain on plantar flexion or dorsiflexion. Neuro: Oriented X 3. No motor deficit. No sensory deficit. Moving all extermities. No slurred speech Medications Administered Discontinued Medications Generic Name Dose Route Start Last Admin Trade Name Freq PRN Reason Stop Dose Admin Gadobutrol 7.5 ml 02/04/25 13:09 02/04/25 13:09 Gadobutrol 7.5 Ml Vial IVPUSH 02/04/25 13:10 4.5 ml ONCE ONE Administration Hydromorphone HCl 0.5 mg 02/04/25 09:48 02/04/25 10:17 Hydromorphone Hcl 0.5 Mg/0.5 Ml Syringe IVPUSH 02/04/25 09:49 0.5 mg ONCE ONE Administration Protocol Ketorolac Tromethamine 30 mg 02/04/25 07:18 02/04/25 07:48 Ketorolac Tromethamine 30 Mg/Ml Vial IM 02/04/25 07:19 30 mg ONCE ONE Administration Lorazepam 1 mg 02/04/25 11:48 02/04/25 12:03 Lorazepam 1 Mg Tablet PO 02/04/25 11:49 1 mg ONCE ONE Administration Ondansetron HCl 4 mg 02/04/25 09:48 02/04/25 10:17 Ondansetron Hcl 4 Mg/2 Ml Vial IVPUSH 02/04/25 09:49 4 mg ONCE ONE Administration Medical Decision Making Medical Decision Making [facility] Narrative: Patient has presented today status post fall. There is a possible nasal fracture noted on the CT scan. On the CT scan of the neck there was a question of a mass on the left parotid area. MRI was done. There is no mass noted. C- spine CT showed no acute fracture per Radiology. There is no point tenderness on palpation. Patient well-appearing. CT head showed no evidence of bleed. Will discharge patient home. Her hemoglobin is 11.6 there is no signs of anemia. Patient's electrolytes are normal. Differential Diagnosis Differential Diagnoses: The differential diagnosis associated with the presentation includes Fracture, intracranial bleed, neck injury Admission/Observation Consideration of admission/observation: Escalation of care including admission/observation considered Lab Data [facility] Lab Attestation statement: I reviewed the patient's lab results. 02/04/25 07:44 02/04/25 07:44 Labs: Lab Results 02/04/25 Range/Units 07:44 WBC 8.0 (4.8-10.8) X10*3/uL RBC 4.07 L (4.20-5.50) X10*6/uL Hgb 11.6 L (12.0-16.0) g/dl Hct 34.5 L (37.0-47.0) % MCV 84.8 (80.0-98.0) fL MCH 28.5 (27.0-33.0) pg MCHC 33.6 (31.0-35.0) g/dl RDW 13.3 (11.0-16.0) % Plt Count 348 (160-400) X10*3/uL MPV 9.5 (9.4-12.3) fL Immature Gran % (Auto) 0.4 (0.0-0.4) % Neut % (Auto) 71.4 (45-73) % Lymph % (Auto) 18.4 L (20-40) % Hodgeman % (Auto) 8.1 (2-11) % Eos % (Auto) 1.1 (0-4) % Baso % (Auto) 0.6 (0-2) % Lymph # (Auto) 1.5 (1.2-4.9) X10*3/uL Hodgeman # (Auto) 0.6 (0.1-1.2) X10*3/uL Eos # (Auto) 0.1 (0.0-0.4) X10*3/uL Baso # (Auto) 0.1 (0.0-0.2) X10*3/uL Abs Immat Gran (auto) 0.03 (0.00-0.03) X10*3/uL Absolute Neuts (auto) 5.7 (2.0-8.3) x10*3/uL Absolute Nucleated RBC 0.000 (0.0-0.012) X10*3/uL Nucleated RBC % (auto) 0.0 (0.0-0.2) /100WBC Sodium 142 (135-145) mmol/L Potassium 4.3 (3.3-5.1) mmol/L Chloride 107 (96-108) mmol/L Carbon Dioxide 25 (22-29) mmol/L Anion Gap 14 (12-20) BUN 13 (9-16) mg/dL Creatinine 0.68 (0.5-1.4) mg/dL Estim Creat Clear Calc 62.0 Estimated GFR > 60 Random Glucose 94 (60-115) mg/dL Calcium 9.2 D (8.4-10.2) mg/dL Independent Interpretation I performed an independent interpretation of an: CT Scan (CT head showed no bleeding.) Radiology Impression Discussion of test interpretation with radiology: I have reviewed the radiologist's reading. Discharge Plan Discharge Clinical Impression: Head injury, Fracture of nasal bone Patient Disposition: Home, Self-Care Instructions: Head Injury (DC), Nasal Fracture (ED) Prescriptions: No Action atorvastatin 10 mg tablet 1 tab PO DAILY oxycodone-acetaminophen 5-325 mg tablet 1 tab PO TID PRN (Reason: Pain) pantoprazole 40 mg tablet,delayed release (DR/EC) 1 tab PO DAILY fluoxetine 20 mg capsule 3 cap PO QAM diazepam 5 mg tablet 1 tab PO BID PRN (Reason: Anxiety) indomethacin 25 mg capsule 25 mg PO ONCE PRN (Reason: pain (scale score 4-6)) Qty: 10 0RF Rx Instructions: administer with food or milk (DME) Kneeling Scooter See Rx Instructions .ROUTE .MEDSUPPLY Qty: 1 0RF Rx Instructions: As directed Referrals: Wayne Leonard MD [Primary Care Provider] - 02/06/25 Print Language: Chinese
[2025-02-04] MEDS: Ketorolac Tromethamine 30 MG/ML VIAL IM (07:48)
[2025-02-04 07:49] LABS: MANUAL DIFF FLAG NO
[2025-02-04 07:51] LABS: Basophils Absolute Auto 0.1 X10*3/uL (0.0-0.2); Basophils Percent Auto 0.6 % (0-2); Eosinophils Absolute Auto 0.1 X10*3/uL (0.0-0.4); Eosinophils Percent Auto 1.1 % (0-4); Hematocrit 34.5 % (37.0-47.0); Hemoglobin 11.6 g/dl (12.0-16.0); Imm Gran Abs Auto 0.03 X10*3/uL (0.00-0.03); Imm Gran Pct Auto 0.4 % (0.0-0.4); Lymphocytes Absolute Auto 1.5 X10*3/uL (1.2-4.9); Lymphocytes Percent Auto 18.4 % (20-40); Mean Corpuscular HGB Conc 33.6 g/dl (31.0-35.0); Mean Corpuscular Hemoglobin 28.5 pg (27.0-33.0); Mean Corpuscular Volume 84.8 fL (80.0-98.0); Mean Platelet Volume 9.5 fL (9.4-12.3); Monocytes Absolute Auto 0.6 X10*3/uL (0.1-1.2); Monocytes Percent Auto 8.1 % (2-11); Neutrophils Absolute Auto 5.7 x10*3/uL (2.0-8.3); Neutrophils Percent Auto 71.4 % (45-73); Platelet Count 348 X10*3/uL (160-400); Red Blood Count 4.07 X10*6/uL (4.20-5.50); Red Cell Distribution Width 13.3 % (11.0-16.0)
[2025-02-04 07:55] VITALS: BP 123/75; PULSE 65; RESP 12; O2SAT 96
--- NOTE | 2025-02-04 07:57 | PC.NURSE ---
This RN assumed care of patient @ 0700. Patient c/o of right sided pain. administered tordol, effectiveness pending. VSS and up to date. Patient remains in C collar. MRi screening completed and fax. remains at bedside. Plan of care on going.
[2025-02-04 08:11] LABS: Anion Gap 14 (12-20); Blood Urea Nitrogen 13 mg/dL (9-16); Calcium 9.2 mg/dL (8.4-10.2); Carbon Dioxide 25 mmol/L (22-29); Chloride 107 mmol/L (96-108); Estimated Glomerular Filt Rate > 60; Glucose Random 94 mg/dL (60-115); Potassium 4.3 mmol/L (3.3-5.1); Sodium 142 mmol/L (135-145)
[2025-02-04 10:17] VITALS: RESP 17
[2025-02-04] MEDS: ondansetron HCL 4 MG/2 ML VIAL IVPUSH (10:17)
[2025-02-04] MEDS: HYDROmorphone HCl 0.5 MG/0.5 ML SYRINGE IVPUSH (10:17)
--- NOTE | 2025-02-04 10:21 | PC.NURSE ---
20G placed in LFA, + blood return, line patent. Patient c/o of right sided pain rating 8/10. Administered dilauded, effectiveness pending. Patient c/o of nausea, administered zofran, effectiveness pending. no longer at bedside, call forman within reach.
[2025-02-04 11:25] VITALS: BP 136/77; PULSE 72; RESP 16; O2SAT 97
[2025-02-04] MEDS: LORazepam 1 MG TABLET PO (12:03)
--- NOTE | 2025-02-04 12:06 | PC.NURSE ---
Patient c/o of anxiety. Notified provider, administered ativan. Effectiveness pending.
--- NOTE | 2025-02-04 12:22 | PC.NURSE ---
Patient currently at MRI.
[2025-02-04] MEDS: gadobutroL 7.5 ML VIAL IVPUSH (13:09)
[2025-02-04 15:12] VITALS: BP 113/71; PULSE 76; RESP 14; TEMP 36.9; O2SAT 97
[2025-02-04 15:14] VITALS: BP 113/71; PULSE 76; RESP 14; TEMP 36.9; O2SAT 97
== END 2025-02-04 15:19 | disposition home or self-care (01) ==
PROVIDERS: Emergency Provider Emergency Medicine Emergency Medical Services; PCP Internal Medicine
DX: S09.90XA Unspecified injury of head, initial encounter (principal); S02.2XXA Fracture of nasal bones, initial encounter for closed fracture; W10.8XXA Fall (on) (from) other stairs and steps, initial encounter; Y93.9 Activity, unspecified; Y92.018 Other place in single-family (private) house as the place of occurrence of the external cause; Y99.9 Unspecified external cause status
CPT/HCPCS: 36415; 70450; 70543; 72125; 80048; 85025; 96372; 96374; 96375; 99284; 99285; A9585; J1171; J1885; J2405

== ENCOUNTER → 2025-02-04 05:25 | Outpatient (BNV) | payer OTHER, SELFPAY | PROVIDERS: Emergency Provider Emergency Medicine Emergency Medical Services; PCP Internal Medicine; Visit Provider Radiology Diagnostic Radiology | DX: M54.2 Cervicalgia (principal); M47.892 Other spondylosis, cervical region; S09.90XA Unspecified injury of head, initial encounter; W19.XXXA Unspecified fall, initial encounter | CPT/HCPCS: 70450; 70543; 72125 ==

== ENCOUNTER 2025-06-30 07:14 | Outpatient (REF) | payer OTHER, SELFPAY ==
--- OUTSIDE RECORDS SUMMARY | 2025-06-27 15:00 | XMS_ITS | Encounter Summary ---
Author Organization [facility] Address [address] [place] [address] Phone Care Team Providers Care Nutrition And Dietetics Instructor Name Role Phone Wayne Leonard MD Primary Care Provider [phone] Reason for Referral * Physical Therapy (Within 2 weeks) - New Request Specialty Diagnoses / Procedures Referred By Alyse kinney Referred To Contact Diagnoses Radiculopathy of lumbar region Right hip pain Wayne Leonard MD [address] [place] [address] Phone: tel: fax: [email or web address] Unknown, Unknown, MD Referral ID Status Reason Start Date Expiration Date V isits Requested Visits Authorized [id number] New Request 06/27/2025 06/27/2026 1 1 Reason for Visit * Reason Comments Medicare Annual Wellness Visit Subsequen t Headache cervical and back pain Feel achey low energy Encounter Details Date Type Department Care Team (Late st Contact Info) Description 06/27/2025 3:00 PM EDT Office Visit [facility] Internal Medicine [address] [place], [place] [id number] Wayne Leonard MD [address] [place], [place] [email or web address] Routine general medical examination at a health care facility (Primary Dx); Long-term current use of opiate analgesic; Radiculopathy of lumbar region; Chronic bilateral low back pain without sciatica; Right hip pain; Cervicalgia; Vitamin D deficiency, unspecified; Osteopenia of lumbar spine; Impaired fasting glucose; Lipid screening; Vitamin B 12 deficiency; Screening mammogram, encounter for Social History Tobacco Use Types Packs/Day Years Used Date Smoking Tobacco: Former Cigarettes 1 6 0 10/02/1973 - 10/02/1979 Smokeless Tobacco: Never Comments:quit over 20 years ago Alcohol Use Standard Drinks/Week Comments Yes 0 (1 standard drink = 0.6 oz pure alcohol) 1 glass of wine every couple of months socially Child or Family Care Answer Date Record ed Do you have problems with on e of the following making it difficult for you to work, study, or receive health care? No 03/05/2021 Education Answer Date Recorded Are you interested in more education? Not on mauricio e 03/14/2023 Are you concerned about learning? Not on file 03/14/2023 No 03/14/2023 No 03/14/2023 Food Answer Date Recorded Within the past 6 months we worried whether our food would run out before we got money to buy more. Never True 03/05/2021 Within the past 6 months the food we bought just didn't last and we didn't have enough money to get more. Never True Residential Stability Answer Date Recor ded What is your housing situation today? I have anish gr 03/05/2021 How many times have you move d in the past 12 months? Zero (I did not move) 03/05/2021 06 Are you worried that in t he next 2 months, you may not have your own housing to live in? No 03/05/2021 Paying for Meds Answer Date Recorded Do you have trouble paying for medicines? No 03/05/2021 Paying Utility Bills Answer Date Record ed Do you have trouble paying your heating or elect ricity bill? No 03/05/2021 Transportation Answer Date Recorded Has the lack of transportati on kept you from medical appointments or from getting medications? No 03/05/2021 Unemployment Answer Date Recorded Are you currently unemployed or working on a part-time or temporary basis, and looking for work? Yes 03/05/2021 Digital Access Answer Date Recorded No 02/22/2023 No 02/22/2023 Reliable internet access at home? Not on file 02/22/2023 Device with a working camera? Not on file Intimate Partner Violence Answer Date R ecorded Denied Basic Needs Not on file 06/27/2025 In the past 12 months have y ou been in a relationship with a person who hurts, threatens, or tries to control you? No 06/27/2025 Worried food would run out Not on file 06/27 In the past 12 months have y ou been in a relationship with a person who hurts, threatens, or tries to control you? No 06/27/2025 Comments No Sex and Gender Information Value Date Recorded Sex Assigned at Not on file Legal Sex Female 9:54 PM EDT Gender Identity Not on file Sexual Orientation Not on file documented as of this encounter Last Filed Vital Signs Vital Sign Reading Time Taken Comments Blood Pressure 102/64 06/27/2025 3:09 PM EDT Pulse 45 06/27/2025 3:09 PM EDT Temperature 36.7 C (98 F) 06/27/2025 3:09 PM EDT Respiratory Rate 18 06/27/2025 3:09 PM EDT Oxygen Saturation 95% 06/27/2025 3:09 PM EDT Inhaled Oxygen Concentration - - Weight 50.3 kg (111 lb) 06/27/2025 3:09 PM EDT Height 159.3 cm (5' 2.72 ) 06/27/2025 3:09 PM ED T Body Mass Index 19.84 06/27/2025 3:09 PM EDT documented in this encounter Progress Notes * Wayne Leonard MD - 06/27/2025 3:00 PM EDT Subjective Eleni Coffey is a 69 y.o. female. History of Present Illness Eleni Coffey is a 69 year old female who presents with low back, right hip, and neck pain. She experiences pain across her back, specifically in the low back and right hip area, which sometimes radiates down her leg. She describes a sensation of something being 'pinched' and mentions that she has to walk in a certain way and apply ice for two days to alleviate the pain. She is seeking therapy to improve her gait. In addition to the back and hip pain, she also reports neck pain located in the middle of the neck,more on the right side, which radiates down her right arm. She notes that the pain extends all the way down the arm. She recalls having a CT scan of her neck after a fall down the stairs at her daughter's house in January, but is uncertain about the specific findings. She has undergone previous imaging, including a CT scan of the neck and lumbar spine, and a CT of the head, following her fall. She has recently tested negative for COVID-19 prior to this visit. Current Outpatient Medications Ordered in [facility] Medication Sig CALCIUM CITRATE ORAL Take 600 mg by mouth daily. cholecalciferol (VITAMIN D3) 25 MCG (1,000 unit) tablet Take 1,000 Units by mouth daily. diazePAM (VALIUM) 5 MG tablet TAKE 1 TABLET BY MOUTH EVERY 12 HOURS NEEDED FOR ANXIETY FLUoxetine (PROZAC) 20 MG capsule take 3 capsules by mouth every day ibuprofen (ADVIL,MOTRIN) 600 MG tablet TAKE 1 TABLET BY MOUTH TWICE A DAY NEEDED [START ON 07/01/2025] oxyCODONE-acetaminophen (PERCOCET) 5-325 mg per tablet Take 1 tablet by mouth every 6 (six) hours as needed for pain (specific location in comments) (pain in low back). Partial fill ok pantoprazole (PROTONIX) 40 MG tablet TAKE 1 TABLET BY MOUTH EVERY DAY (Patient not taking: Reportedon 10/18/2024) valACYclovir (VALTREX) 1000 MG tablet TAKE 2 TABLETS (2,000 MG TOTAL) BY MOUTH 2 (TWO) TIMES A DAY NEEDED. FOR 2 DOSAGES Review of Systems Constitutional: Negative for unexpected weight change. HENT: Negative for changes in hearing. Eyes: Negative for unexpected vision change. Cardiovascular: Negative for chest pain and palpitations. Gastrointestinal: Positive for abdominal pain. Negative for blood in stool, constipation and diarrhea. Genitourinary: Negative for problems with urination, pain with intercourse and blood in urine. Neurological: Positive for headaches. Negative for dizziness and changes in memory. Skin: Negative for persistent rash and breast concerns. Musculoskeletal: Positive for joint pain. Objective BP 102/64 (BP Location: Right arm, Patient Position: Sitting, Cuff Size: Medium) Pulse (!) 45 Temp 36.7 ??C (98 ??F) (Oral) Resp 18 Ht 159.3 cm (5' 2.72 ) Wt 50.3 kg (111 lb) LMP (LMP Unknown) SpO2 95% BMI 19.84 kg/m?? HEENT:PERRTL, EOM intact, fundi benign, TM's clear, throat clear. NECK: supple, no thyroid megaly, no adenopathy. Tenderness neck muscles to palpation. LUNGS: clear to A&P,no wheezing/rhonichi/rales. HEART: RRR S1S2 without murmurs, rubs or gallops. ABDOMEN: bowel sounds: normal, soft non tender without masses. EXTREMITIES: without edema, clubbing or cyanosis. BACK: Tenderness low back muscles to palpation. NEURO:pt remembered 3/3 words 5 min spelled world backward oreinted x3. BREAST/: per pharmaceutical salesperson Physical Exam Assessment & Plan Adult Wellness Visit She is up to date with breast exams. Lumbar radiculopathy with low back and right hip pain Chronic low back and right hip pain with radiation, altered gait, and pinching sensation. - Refer to physical therapy for low back and right hip pain to improve gait. Right-sided cervical radiculopathy with right arm radiation Chronic right-sided neck pain radiating down the right arm. Previous neck CT scan post-fall showed no significant findings. I obtained verbal consent from the patient or their proxy to record this visit for purposes of producing a draft of the encounter documentation. Answers submitted by the patient for this visit: From Your Doctor: Pre-visit Questions (Submitted on 06/27/2025) Unexpected weight change: No Changes in hearing: No Unexpected vision change: No Chest pain: No Palpitations: No Abdominal pain: Yes Blood in stool: No Constipation: No Diarrhea: No Problems with urination: No Pain with intercourse: No Blood in urine: No Joint pain: Yes Persistent rash: No Breast concerns: No Dizziness: No Headaches: Yes Changes in memory: No documented in this encounter Plan of Treatment Upcoming Encounters Date Type Department Care Team (Late st Contact Info) Description 12/03/2025 10:30 AM EST Office Visit [facility] Internal Medicine [address] [facility] [address] Wayne Leonard MD [address] [place] [address] [email or web address] Scheduled Orders Name Type Priority Associated Diagnoses Orde r Schedule Toxicology screen, urine Lab Routine Long-term current use of opiate analgesic Radiculopathy of lumbar region Expected: 06/27/2025, Expires: 09/26/2025 XR Cervical Spine Imaging Routine Cervicalgia Expected: 06/28/2025, Expires: 09/26/2025 Comprehensive metabolic panel Lab Routine Long-term current use of opiate analgesic Chronic bilateral low back pain without sciatica Right hip pain Cervicalgia Expected: 06/27/2025, Expires: 06/27/2026 CBC and differential Lab Routine Chronic bilateral low back pain without sciatica Right hip pain Vitamin B 12 deficiency Expected: 06/27/2025, Expires: 06/27/2026 Lipid panel Lab Routine Lipid screening Expected: 06/27/2025, Expires: 06/27/2026 TSH with reflex Lab Routine Vitamin B 12 deficiency Expected: 06/27/2025, Expires: 06/27/2026 Urinalysis Lab Routine Vitamin B 12 deficiency Expected: 06/27/2025, Expires: 09/26/2025 Hemoglobin A1c Lab Routine Impaired fasting glucose Expected: 06/27/2025, Expires: 06/27/2026 Vitamin B12 Lab Routine Vitamin B 12 deficiency Expected: 06/27/2025, Expires: 06/27/2026 25-OH vitamin D Lab Routine Vitamin D deficiency, unspecified Expected: 06/27/2025, Expires: 06/27/2026 Scheduled Referrals Name Type Priority Associated Diagnoses Order Schedule Ambulatory referral to External Physical Therapy Outpatient Referral Routine Radiculopathy of lumbar region Right hip pain Ordered: 06/27/2025 documented as of this encounter Procedures Procedure Name Priority Date/Time Associated Diagnosis Comments BI MAMMOGRAM SCREENING (BILATERAL) Routine 06/27/2025 4:29 PM EDT Screening mammogram, encounter for documented in this encounter Visit Diagnoses Diagnosis Routine general medical examination at a health care facility- Primary Long-term current use of opiate analgesic Encounter for long-term (current) use of other medications Radiculopathy of lumbar region Chronic bilateral low back pain without sciatica Right hip pain Pain in joint, pelvic region and thigh Cervicalgia Vitamin D deficiency, unspecified Osteopenia of lumbar spine Impaired fasting glucose Lipid screening Screening for lipoid disorders Vitamin B 12 deficiency Other B-complex deficiencies Screening mammogram, encounter for documented in this encounter Additional Health Concerns Assessment Noted Time PHQ-2 Depression Total Score: 1 06/27/20 25 3:04 PM EDT documented as of this encounter Care Teams Nutrition And Dietetics Instructor Relationship Specialty Start Date End Date Wayne Leonard MD [address] [place] [id number] [email or web address] PCP - General Internal Medicine 10/27/17 documented as of this encounter Additional Source Comments The information contained in this document represents components of the legal health record. It is not the complete legal health record.[facility]
--- NOTE | ~2025-06-30 | XR_ITS ---
CLINICAL HISTORY: CERVICALGIA --- Additional Notes or Special Instructions: WO Exam: Cervical spine 5 views Comparison: CT/SR - CT CERVICAL SPINE WO IV CON - 02/04/25 05:25 EDT Findings: 4 mm anterolisthesis C4-5, previously 3 mm. Atlantoaxial relationship normal. No acute fracture. No suspicious osseous lesion. Prevertebral and uncovertebral osteophytes moderate disc height loss and mild endplate sclerotic changes C5-6 and C6-7 with mild bilateral foraminal narrowing, similar to prior. Additional mild left C2-3, C4-5 foraminal narrowing. Mild C4-5 disc height loss. Multilevel facet arthrosis, worst at C7-T1. Prevertebral soft tissue is unremarkable. Lung apices clear. Dental hardware noted. Impression: 1. Stable to minimally increased grade 1 anterolisthesis C4-5. 2. Multilevel degenerative spondylosis of cervical spine, no substantial change. This document has been electronically signed by: Nidhi Almonte MD on 07/01/2025 16:29:56
--- OUTSIDE RECORDS SUMMARY | 2025-06-30 07:17 | XMS_ITS | Encounter Summary ---
Author Organization Located Within [facility] Address [address] [place] [phone] Phone Care Team Providers Care Rn Angiography Name Role Phone Wayne Leonard MD Primary Care Provider [phone] Reason for Visit * Reason Onset Date Comments Back Pain 06/18/2025 Encounter Details Date Type Department Care Team ([facility] Contact Info) Description 06/18/2025 Telephone [employer] [facility] Internal Medicine [address] [place], [place] [phone] Wayne Leonard MD [address] [place], [place] [phone] [email or web address] [facility] Social History Tobacco Use Types Packs/Day Years [...] ecorded Denied Basic Needs Not on file 06/24/2024 In the past 12 months have y ou been in a relationship with a person who hurts, threatens, or tries to control you? No 06/24/2024 Worried food would run out Not on file 06/24 In the past 12 months have y ou been in a relationship with a person who hurts, threatens, or tries to control you? No 06/24/2024 Comments No Sex and Gender Information Value Date Recorded Sex Assigned at Not on file Legal Sex Female 9:54 PM EDT Gender Identity Not on file Sexual Orientation Not on file documented as of this encounter Progress Notes * Wayne Leonard MD - 06/23/2025 7:32 PM EDT Noted. * Doris Adan - 06/19/2025 9:09 AM EDT FYI- Patient returned call to the office. Declined to schedule with another provider. Reports she will wait to see Dr. Leonard on 06/27 * Doris Adan - 06/19/2025 9:07 AM EDT LVM to call and schedule sick appt with another provider * Wayne Leonard MD - 06/18/2025 6:51 PM EDT Please schedule with next provider with open appt * Doris Adan - 06/18/2025 10:23 AM EDT LVM to call with providers message and to call and schedule sick appt with another provider sooner if needed. * Wayne Leonard MD - 06/18/2025 10:20 AM EDT Needs appt before pt referral * Cleo Richmond RN - 06/18/2025 9:36 AM EDT Spoke to Eleni who states she has lower back pain and it radiates into her right and left hips. She states the pain has been a lot worse since her fall. She has been icing and doing exercises but feels she needs more guidance from PT. Referral pended for review. She is seeing Dr. Leonard 06/27/25. * Nereida Adantte - 06/18/2025 9:31 AM EDT Received call from patient, reporting she has back pain and looking to get a referral for physical therapy. Reports she has a cpe scheduled for 06/27 but looking to get PT at [facility] started abigail as she will be gone in August. Requesting call to advise. documented in this encounter Plan of Treatment Upcoming Encounters Date Type Department Care Team (Late st Contact Info) Description 12/03/2025 10:30 AM EST Office Visit [facility] Internal Medicine [address] [place] [address] Wayne Leonard MD [address] [place] [address] [email or web address] documented as of this encounter Visit Diagnoses Diagnosis Back pain- Primary Unspecified backache Hip pain Pain in joint, pelvic region and thigh documented in this encounter Additional Health Concerns Assessment Noted Time PHQ-2 Depression Total Score: 2 06/24/20 24 2:15 PM EDT documented as of this encounter Care Teams Rn Angiography Relationship Specialty Start Date End Date Wayne Leonard MD [address] [place] [address] PCP - General Internal Medicine 10/27/17 documented as of this encounter Additional Source Comments The information contained in this document represents components of the legal health record. It is not the complete legal health record.[facility]
--- OUTSIDE RECORDS SUMMARY | 2025-06-30 07:17 | XMS_ITS | Clinical Summary ---
Author Organization [facility] Address [address] [place] [address] Care Team Providers Care Behavioral Health Technician Name Role Phone Unknown Primary Care Provider [phone] Allergies No known active allergies Social History Tobacco Use Types Packs/Day Years Used Date Smoking Tobacco: Never Assessed Comments Unknown Sex and Gender Information Value Date Recorded Sex Assigned at Not on file Legal Sex Female 8:17 AM EDT Gender Identity Not on file Sexual Orientation Not on file Last Filed Vital Signs Vital Sign Reading Time Taken Comments Blood Pressure 152/89 12/15/2020 8:25 AM EDT Pulse 72 12/15/2020 8:25 AM EDT Temperature 36.8 C (98.3 F) 12/15/2020 8:25 AM EDT Respiratory Rate - - Oxygen Saturation 97% 12/15/2020 8:25 AM EDT Inhaled Oxygen Concentration - - Weight - - Height - - Body Mass Index - - Plan of Treatment Health Maintenance Due Date Last Done Comments Advance Care Planning 1955 Hepatitis C Virus Screening 1955 DTaP/Tdap/Td Vaccines (1 - Tdap) 1975 Pneumococcal Vaccines 50+ (1 of 1 - PCV) 2006 Zoster (Shingles) Vaccine (1 of 2) 2006 COVID-19 Vaccine ( - 2023-2 5 season) 2025 RSV Vaccine 60 years and old er and Patients (1 - 1-dose 75+ series) 2031 Hepatitis B Vaccines Aged Out No long er eligible based on patient's age to complete this topic Care Teams Behavioral Health Technician Relationship Specialty Start Date End Date Unknown Unknow Provider Address PCP - General 12/15/20
--- OUTSIDE RECORDS SUMMARY | 2025-06-30 07:17 | XMS_ITS | Clinical Summary ---
Author Organization [facility] Address [address] [place] [phone] Phone Care Team Providers Care Dial Lathe Operator Name Role Phone Wayne Leonard MD Primary Care Provider [phone] Allergies Active Allergy Reactions Criticality Noted Date Comments Penicillins Hives 11/14/2017 Medications pantoprazole (PROTONIX) 40 MG tabletIndications:Lexie roesophageal reflux disease TAKE 1 TABLET BY MOUTH EVERY DAY 30 tablet 5 2020 Active Additional Information Patient not taking.Reported on 06/27/2025 CALCIUM CITRATE ORAL Take 600 mg by mouth daily. Active cholecalciferol (VITAMIN D3) 25 MCG (1,000 unit) tablet Take 1,000 Units by mouth daily. Active FLUoxetine (PROZAC) 20 MG capsuleIndications:Anx iety disorder take 3 capsules by mouth every day 270 capsule 2 2023 Active valACYclovir (VALTREX) 1000 MG tabletIndications:Cold sore TAKE 2 TABLETS (2,000 MG TOTAL) BY MOUTH 2 (TWO) TIMES A DAY NEEDED. FOR 2 DOSAGES 8 tablet 3 2024 Active ibuprofen (ADVIL,MOTRIN) 600 MG tablet TAKE 1 TABLET BY MOUTH TWICE A DAY NEEDED 60 tablet 2 2024 Active diazePAM (VALIUM) 5 MG tabletIndications:Anxi ety state TAKE 1 TABLET BY MOUTH EVERY 12 HOURS NEEDED FOR ANXIETY 12 tablet 2024 Active oxyCODONE-acetaminophe n (PERCOCET) 5-325 mg per tabletIndications:Neck and shoulder pain,Bilateral low back pain without sciatica Take 1 tablet by mouth every 6 (six) hours as needed for pain (specific location in comments) (pain in low back). Partial fill ok 112 tablet 07/29 Active atorvastatin (LIPITOR) 10 MG tabletIndications:Pure hypercholesterolemia take 1 tablet by mouth every day 90 tablet 3 06/27 Discontinued oxyCODONE-acetaminophe n (PERCOCET) 5-325 mg per tabletIndications:Neck and shoulder pain,Bilateral low back pain without sciatica Take 1 tablet by mouth every 6 (six) hours as needed for pain (specific location in comments) (pain in low back). Partial fill ok 112 tablet 06/24 Discontinued( Reorder) Active Problems Problem Noted Date Diagnosed Date Degenerative disc disease at L5-S1 level 024 Overview (06/17/2024): Seen on hip XRAY done May 2024 Myalgia 05/12/2018 Parotid mass 01/09/2018 Overview (01/09/2018): Right. 09/2017 CT--2.5 cm mass superficial parotid. FNA--myoepithelial salivary neoplasm. Scheduled right parotidectomy 01/11/2018. Preoperative clearance 01/09/2018 Assessment & Plan (01/09/2018 1:19 PM EDT): Discussed exam wnl today. Await laboratory evaluation and will contact pt with lab results. Will send visit note and results to Dr. Cao's office. Please comply with any pre-operative instructions and continue to avoid NSAIDs. I also recommended avoiding any etoh or non-prescription medications or new OTC supplements at this time. Please f/u if any questions or concerns. Please reach out if we can be of assistance during recovery. Anxiety disorder 08/29/2017 Assessment & Plan (01/09/2018 10:55 AM EDT): Continue rx as prescribed. Bilateral low back pain without sciatica 017 Assessment & Plan (01/09/2018 10:55 AM EDT): Supportive counseling re: initiation of PT when cleared post-op. Gastroesophageal reflux disease 08/29/2017 Hip pain 08/29/2017 Assessment & Plan (05/22/2024 1:43 PM EDT): She pres today with atraumatic pain in right hip, long standing.Pain is constant, it improves with medication. Will get a xray, neurovascularly she is intact. She is amenable to go to PT. She will get xray done today. She is not on the portal so will call her with results. She will need to call to book PT as it is outside / external. Will have FD call to tell her that. For her pain I encouraged icy hot patches, and massage. If not better she will let us know Pure hypercholesterolemia 08/29/2017 Overview (01/09/2018): Reports diet controlled Shoulder joint pain 08/29/2017 Vitamin D deficiency 08/29/2017 Resolved Problems Problem Noted Date Diagnosed Date Resolved Date Sacroiliitis, not elsewhere classified 05/12/2018 08/17/2021 Encounters Date Type Department Care Team Description 06/27/2025 3:00 PM EDT Office Visit [facility] Internal Medicine [address] [place] [address] Wayne Leonard MD Routine general medical examination at a health care facility (Primary Dx); Long-term current use of opiate analgesic; Radiculopathy of lumbar region; Chronic bilateral low back pain without sciatica; Right hip pain; Cervicalgia; Vitamin D deficiency, unspecified; Osteopenia of lumbar spine; Impaired fasting glucose; Lipid screening; Vitamin B 12 deficiency; Screening mammogram, encounter for 06/24/2025 Refill [facility] Internal Medicine [address] [place] [address] Wayne Leonard MD Medication Refill (CSRP) 06/18/2025 Telephone [facility] Internal Medicine [address] [place] [address] Wayne Leonard MD Back Pain 05/27/2025 Refill [facility] Internal Medicine [address] [place] [address] Wayne Leonard MD Medication Refill (CSRP) 04/29/2025 Refill [facility] Internal Medicine [address] [facility] [place] [address] Wayne Leonard MD Medication Refill (CSRP) 04/08/2025 Refill [facility] Internal [facility] [address] [place] [address] Wayne Leonard MD Medication Refill 04/01/2025 Refill [facility] Internal Medicine [address] [facility] [place] [address] Wayne Leonard MD Medication Refill (CSRP) from Last 3 Months Immunizations Immunization Administration Dates Next Due COVID-19 (Pre-07/24) Pfizer Vaccine, mRNA, PF ,01/26/2021 Pneumococcal polysaccharide PPSV23 08/17/2021 Tdap 02/02/2022,10/28/2011 Family History Medical History Relation Comments Diabetes Brother Heart disease Brother Hypertension Brother Esophageal cancer Mother Esophageal cancer Sister 1 Heart disease Sister 1 Hypertension Sister 1 Myelodysplastic syndrome Sister 3 Alcohol abuse Sister 7 COPD Sister 7 Throat cancer Son Relation Status Comments Brother Alive cABG Father Mother (Age 55) Sister 1 (Age 68) esoph cancer Sister 2 d/t drug ov erdose Sister 3 Alive Sister 4 Alive Sister 5 Alive Sister 6 Alive Sister 7 (Age 61) at 61 y/o in a house fire Son dx with throat c ancer at 49 y/o Social History Tobacco Use Types Packs/Day Years Used Date Smoking Tobacco: Former Cigarettes 1 6 0 10/02/1973 - 10/02/1979 Smokeless Tobacco: Never Tobacco Cessation:Counseling Given: Not Answered Comments:quit over 20 years ago Alcohol Use [...] your housing situation today? I have anish sing 03/05/2021 How many times have you move [...] Mass Index 19.84 06/27/2025 3:09 PM EDT Plan of Treatment Upcoming Encounters Date Type Department Care Team (Late st Contact Info) Description 12/03/2025 10:30 AM EST Office Visit [facility] Internal Medicine [address] [place] [address] Wayne Leonard MD [address] [place] [address] Health Maintenance Due Date Last Done Comments COLOGUARD 2001 FIT TEST 2001 FOBT 2001 SIGMOIDOSCOPY 2001 VIRTUAL COLONOSCOPY 2001 ZOSTER VACCINES (1 of 2) 2006 PNEUMOCOCCAL VACCINES (50+ years) (2 of 2 - PCV) 08/17/2022 08/17/2021 INFLUENZA VACCINE (#1) 2025 COVID-19 VACCINE ( season) 2025 09/07/2021, 02/16/2021, 01/26/2021 DEPRESSION SCREENING 06/27/2026 06/27/2025 MAMMOGRAM 06/27/2027 06/27/2025, 07/04, 07/31/2024, Additional history exists COLONOSCOPY 11/29/2027 11/29/2017, 10/05/2007 COLORECTAL CANCER SCREENING 11/29/2027 LIPID PANEL 06/26/2029 06/26/2024, 06/03, 06/26/2024, Additional history exists RSV VACCINE (1 - 1-dose 75+ series) 2031 Adult Td,Tdap Booster 02/03/2032 02/02/2022, 012 HEPATITIS C SCREENING Completed 09/15/2020, 020 OSTEOPOROSIS SCREENING INITIAL (ONE-TIME) Completed 08/14/2024, 06/24/2024, 08/25/2021 SMOKING STATUS SCREENING (Once After 26 Yrs) Completed 06/27/2025 HEPATITIS A VACCINES Aged Out No long er eligible based on patient's age to complete this topic HIB VACCINES Aged Out No longer eligi ble based on patient's age to complete this topic MENINGOCOCCAL VACCINES (ACWY) Aged Out No longer eligible based on patient's age to complete this topic MENINGOCOCCAL VACCINES (B) Aged Out N o longer eligible based on patient's age to complete this topic Medical Devices Not on file Procedures Procedure Name Priority Date/Time Associated Diagnosis Comments BI MAMMOGRAM SCREENING (BILATERAL) Routine 06/27/2025 4:29 PM EDT Screening mammogram, encounter for HM DEXA SCAN Routine 08/14/2024 9:51 AM EST OUTSIDE HDL Routine 06/26/2024 HEPATITIS C ANTIBODY, QUALITATIVE Routine 09/15/2020 8:37 AM EST Pure hypercholesterolemia COLONOSCOPY FOR RESULT ENTRY ONLY Routine 11/29/2017 from Last 3 Months or Most Recently Relevant to Health Maintenance Results * DEXA SCAN (08/14/2024 9:51 AM EST) Historical Provider MD HEALTH MAINTENANCE Final Result * MAMMOGRAPHY FOR RESULT ENTRY ONLY (07/31/2024 9:56 AM EDT) Historical Provider HEALTH MAINTENANCE Final Result * (ABNORMAL) Outside HDL (06/26/2024) HDL - External 105(A) 40 - 80 mg/dL EXTERNAL NON-INTERFACED REF LAB Historical Provider LAB BLOOD ORDERABLES Chanelle l Result EXTERNAL NON-INTERFACED REF LAB * Hepatitis C antibody, qualitative (09/15/2020 8:37 AM EST) [facility] HCV NON-REACTIV E NON-REACTI VE [facility] Blood 09/15/2020 8:37 AM EST 09/15/2020 8:43 AM EST Wayne Leonard MD LAB BLOOD ORDERABLES Final Re sult [facility] [address] [place] [address] * COLONOSCOPY FOR RESULT ENTRY ONLY (11/29/2017) [facility] Colonoscopy 10 yr recall Historical Provider HEALTH MAINTENANCE Edited Result - Final from Last 3 Months or Most Recently Relevant to Health Maintenance Insurance [facility] MEDICARE REPLACEMENT [place] [facility] MEDICARE REPLACEMENT MEDICARE REPLACEMENT MEDICARE REPLACEMENT MEDICARE REPLACEMENT [facility] MEDICARE REPLACEMENT Care Teams Dial Lathe Operator Relationship Specialty Start Date End Date Wayne Leonard MD [address] [place] [phone] [email or web address] PCP - General Internal Medicine 10/27/17 Additional Source Comments The information contained in this document represents components of the legal health record. It is not the complete legal health record.[facility]
--- OUTSIDE RECORDS SUMMARY | 2025-06-30 07:18 | XMS_ITS | Patient Health Record ---
Author Organization [facility] Address [address] [place] [address] Care Team Providers Care Defective Cigarette Slitter Name Role Phone Wayne Leonard MD Primary Care Provider Kody Bowles Unavailable [phone] Allergies Allergen (clinical drug ingredient) Drug/Non Drug Allergy documented on EMR Reaction Allergy Type Onset Date Status Penicillin Unknown Drug Allergy Active Reason For Referral No Information Medications Medication SIG (Take, Route, Frequency, Duration) Notes Start Date End Date Status Pantoprazole Sodium 40 MG 1 tablet Orall y Once a day Active Ibuprofen 600 MG 2 tablet with food o r milk as needed Orally BID Just prn Active oxyCODONE-Acetaminophen 5-325 MG 1 tablet as needed Orally TID Active FLUoxetine HCl 20 MG 1 capsule in the morning Orally Once a day Active Valium 10 MG 1 tablet as needed Orally prn Active Social History Tobacco Use: Social History Observation Description Date Details (start date - stop date) Former Smoker NA - NA Tobacco Use/Smoking Question Answer Notes Patient is a former smoker How long has it been since you last smoked? > 10 years Alcohol Screen Question Answer Notes Did you have a drink contain ing alcohol in the past year? Yes How often did you have a dri nk containing alcohol in the past year? 2 to 3 times a week (3 points) How many drinks did you have on a typical day when you were drinking in the past year? 1 or 2 drinks (0 point) How often did you have 6 or more drinks on one occasion in the past year? Never (0 point) Points 3 Interpretation Positive Section Notes: Nonsmoker of cigarettes; smo kes marijuana daily; no significant alcohol Problems Problem Type SNOMED Code ICD Code Onset Dates Problem Status W/U Status Risk Notes Problem 254706883 Encounter for screening for malignant neoplasm of colon (Z12.11) Active confirmed Problem 459731146 Gastroesophageal reflux disease, esophagitis presence not specified (K21.9) Active confirmed Plan Of Treatment Future Test Test Name Order Date UPPER GI ENDOSCOPY 09/08/2017 COLONOSCOPY 09/08/2017 Insurance Providers Payer Name Payer Address Payer Phone Subscriber Number Group Number Insured Name Patient Relationship to Insured Coverage Start Date Coverage End Date [facility] [address] [place] [phone] [id number] LEIDY TORRES Self - patient is the insured Medical (General) History Medical History History ICD Code Screening colonoscopy 10-05-2007--only int ernal hemorrhoids Denies AK,DM,CVA,Lung disease,renal dise ase Back, neck, and hip pain Depression GERD Surgical History Surgery Date(Month/Year) Appendectomy Cholecystectomy Lymph node needle biopsy 08/2017--Dr. Jeaneth klein--
[2025-06-30 07:31] LABS: MANUAL DIFF FLAG NO
[2025-06-30 08:02] LABS: Hematocrit 35.9 % (37.0-47.0); Hemoglobin 11.8 g/dl (12.0-16.0); Imm Gran Abs Auto 0.02 X10*3/uL (0.00-0.03); Imm Gran Pct Auto 0.2 % (0.0-0.4); Lymphocytes Absolute Auto 1.6 X10*3/uL (1.2-4.9); Mean Corpuscular HGB Conc 32.9 g/dl (31.0-35.0); Mean Corpuscular Hemoglobin 28.5 pg (27.0-33.0); Mean Corpuscular Volume 86.7 fL (80.0-98.0); NRBC Abs Auto 0.000 X10*3/uL (0.0-0.012); NRBC Pct Auto 0.0 /100WBC (0.0-0.2); Platelet Count 386 X10*3/uL (160-400); Red Blood Count 4.14 X10*6/uL (4.20-5.50); White Blood Count 9.1 X10*3/uL (4.8-10.8)
[2025-06-30 08:44] LABS: Appearance Urine Clear; Glucose Urine UA Negative (Negative); PH 6.5 (5.0-9.0); Specific Gravity - Urine 1.010 (1.005-1.025); UMIC TRIGGER UA YES
[2025-06-30 08:52] LABS: Alanine Aminotransferase 22 U/L (0-31); Albumin Level 4.4 g/dL (3.5-5.0); Alkaline Phosphatase 79 U/L (39-117); Anion Gap 11 (12-20); Aspartate Amino Transferase 30 U/L (5-31); Blood Urea Nitrogen 16 mg/dL (9-16); Calcium 9.2 mg/dL (8.4-10.2); Carbon Dioxide 26 mmol/L (22-29); Chloride 110 mmol/L (96-108); Cholesterol 302 mg/dL (<200); Estimated Glomerular Filt Rate > 60; HDL Cholesterol 89 mg/dL (>40); Potassium 4.1 mmol/L (3.3-5.1); Sodium 143 mmol/L (135-145); Total Protein 7.0 g/dL (6.5-8.0); Triglycerides 75 mg/dL (<150)
[2025-06-30 09:12] LABS: Vitamin B12 402 pg/mL (200-900)
== END 2025-06-30 07:15 | disposition home or self-care (01) ==
LOC: HO.LAB 07:14
PROVIDERS: PCP Internal Medicine; Visit Provider Internal Medicine
DX: Z13.220 Encounter for screening for lipoid disorders (principal); Z13.6 Encounter for screening for cardiovascular disorders; M54.50 Low back pain, unspecified; G89.29 Other chronic pain; M25.551 Pain in right hip; M54.2 Cervicalgia; E53.8 Deficiency of other specified B group vitamins; R73.01 Impaired fasting glucose; E55.9 Vitamin D deficiency, unspecified; Z79.891 Long term (current) use of opiate analgesic
CPT/HCPCS: 36415; 72050; 80053; 80061; 81001; 82306; 82607; 83036; 84443; 85025

== ENCOUNTER → 2025-06-30 07:37 | Outpatient (BNV) | payer OTHER, SELFPAY | PROVIDERS: PCP Internal Medicine; Visit Provider Radiology Diagnostic Radiology | DX: M47.812 Spondylosis without myelopathy or radiculopathy, cervical region (principal) | CPT/HCPCS: 72050 ==

== ENCOUNTER 2025-07-23 13:55 | Outpatient (RCR) | payer OTHER, SELFPAY | END 2025-08-26 15:40 | disposition home or self-care (01) | LOC: HO.PT 13:55 | PROVIDERS: PCP Internal Medicine; Visit Provider Internal Medicine | DX: M54.16 Radiculopathy, lumbar region (principal); M25.551 Pain in right hip | CPT/HCPCS: 97110; 97140; 97162 ==

== ENCOUNTER 2025-09-11 07:30 | Outpatient (REF) | payer OTHER, SELFPAY ==
[2025-09-11 07:50] LABS: MANUAL DIFF FLAG NO
[2025-09-11 08:36] LABS: Hematocrit 35.4 % (37.0-47.0); Hemoglobin 11.6 g/dl (12.0-16.0); Imm Gran Abs Auto 0.01 X10*3/uL (0.00-0.03); Imm Gran Pct Auto 0.2 % (0.0-0.4); Lymphocytes Absolute Auto 1.5 X10*3/uL (1.2-4.9); Mean Corpuscular HGB Conc 32.8 g/dl (31.0-35.0); Mean Corpuscular Hemoglobin 28.2 pg (27.0-33.0); Mean Corpuscular Volume 86.1 fL (80.0-98.0); NRBC Abs Auto 0.000 X10*3/uL (0.0-0.012); NRBC Pct Auto 0.0 /100WBC (0.0-0.2); Platelet Count 369 X10*3/uL (160-400); Red Blood Count 4.11 X10*6/uL (4.20-5.50); White Blood Count 5.3 X10*3/uL (4.8-10.8)
[2025-09-11 08:40] LABS: Appearance Urine Clear; Glucose Urine UA Negative (Negative); PH 7.5 (5.0-9.0); Specific Gravity - Urine 1.010 (1.005-1.025); UMIC TRIGGER UA YES
[2025-09-11 08:52] LABS: Cannabinoid Screen Urine POSITIVE (Not Detect)
[2025-09-11 09:41] LABS: Alanine Aminotransferase 19 U/L (0-31); Albumin Level 4.5 g/dL (3.5-5.0); Alkaline Phosphatase 62 U/L (39-117); Anion Gap 10 (12-20); Aspartate Amino Transferase 32 U/L (5-31); Blood Urea Nitrogen 15 mg/dL (9-16); Calcium 8.9 mg/dL (8.4-10.2); Carbon Dioxide 25 mmol/L (22-29); Chloride 106 mmol/L (96-108); Cholesterol 204 mg/dL (<200); Estimated Glomerular Filt Rate > 60; HDL Cholesterol 97 mg/dL (>40); Potassium 4.1 mmol/L (3.3-5.1); Sodium 137 mmol/L (135-145); Total Protein 7.0 g/dL (6.5-8.0); Triglycerides 47 mg/dL (<150)
[2025-09-11 09:55] LABS: Vitamin B12 385 pg/mL (200-900)
== END 2025-09-11 07:31 | disposition home or self-care (01) ==
LOC: HO.LAB 07:30
PROVIDERS: PCP Internal Medicine; Visit Provider Internal Medicine
DX: Z13.220 Encounter for screening for lipoid disorders (principal); E53.8 Deficiency of other specified B group vitamins; M54.16 Radiculopathy, lumbar region; M54.50 Low back pain, unspecified; G89.29 Other chronic pain; M25.551 Pain in right hip; R73.01 Impaired fasting glucose; E78.00 Pure hypercholesterolemia, unspecified; E55.9 Vitamin D deficiency, unspecified; Z79.891 Long term (current) use of opiate analgesic
CPT/HCPCS: 80053; 80061; 80307; 81001; 82306; 82607; 83036; 84443; 85025